=== PATIENT | female | born 1940 | race Caucasian/White ===

== ENCOUNTER → 2020-05-18 15:48 | Outpatient (CLI) | payer MEDICARE, SELFPAY ==
[2020-05-18 16:54] LABS: MANUAL DIFFERENTIAL MANUAL DIFFERENTIAL (MANUAL DIFF)
[2020-05-18 17:46] LABS: Chloride 100 mmol/L (98-107)
[2020-05-18 17:47] LABS: Basophils % 0.4 % (0.1-2.0); Eosinophils # 0.1 K/mm3 (0.0-0.4); Eosinophils % 1.4 % (0.1-12.0); Hematocrit 42.8 % (37.0-47.0); Hemoglobin 14.3 g/dL (12.2-16.2); Lymphocytes # 1.5 K/mm3 (0.7-4.5); Lymphocytes % 20.2 % (10-50); Mean Corpuscular HGB Conc 33.4 g/dL (31.8-35.4); Mean Corpuscular Hemoglobin 30.4 pg (27.0-31.2); Mean Corpuscular Volume 91.1 fl (81-99); Mean Platelet Volume 8.6 fl (7.4-10.4); Monocytes # 0.5 K/mm3 (0.1-1.0); Monocytes % 6.1 % (1.7-9.3); Neutrophils # 5.4 K/mm3 (1.8-7.8); Neutrophils % 71.9 % (37.0-80.0); Platelet Count 331 K/mm3 (142-424); Potassium 4.5 mmoL/L (3.5-5.1); Red Cell Distribution Width 13.4 % (11.5-17.5); Sodium 136 mmol/L (136-145); White Blood Count 7.5 K/mm3 (4.8-10.8)
[2020-05-18 17:49] LABS: Alanine Aminotransferase 15 U/L (12-78); Alkaline Phosphatase 90 U/L (38-126); Anion Gap 12.5 mEq/L (5-15); Aspartate Amino Transferase 23 U/L (14-36); Bilirubin,Total 0.5 mg/dl (0.2-1.3); Blood Urea Nitrogen 17 mg/dl (7-17); Carbon Dioxide 28 mmol/L (22.0-30.0); Estimated Glomerular Filt Rate 48 ml/min (>60); GFR (African American) 58 ML/MIN (>60); Lipase 109 U/L (23-300)
[2020-05-18 17:50] LABS: Albumin Level 4.2 g/dl (3.5-5.0); Albumin/Globulin Ratio 1.5 (1.1-1.8); Calcium 10.3 mg/dl (8.4-10.2); Globulin 2.8 g/dL (1.3-3.2); Glucose 119 mg/dl (74-100)
[2020-05-18 18:57] LABS: Lymphocytes % 9 % (10-50); Neutrophils % 89 % (42-76); Platelet Estimate Normal; RBC Morphology Normal; Total Cells Counted 100
== END ==
PROVIDERS: Visit Provider Family Medicine
DX: D64.9 Anemia, unspecified (principal)
CPT/HCPCS: 80053; 83690; 85007; 85014; 85018; 85048; 85049

== ENCOUNTER → 2021-07-29 09:58 | Outpatient (POV) | payer MEDICARE, SELFPAY ==
[2021-07-29 10:48] VITALS: BP 145/78; PULSE 98; RESP 18; O2SAT 95; BMI 24.7
--- NOTE | 2021-07-29 10:58 | HMH.PMCON ---
Assessment and Plan (1) Chronic low back pain Status: Acute Category: Medical Code(s): M54.50 - Low back pain, unspecified; G89.29 - Other chronic pain (2) Lumbar radiculopathy Status: Acute Category: Medical Code(s): M54.16 - Radiculopathy, lumbar region - Assessment and plan all Dx Assessment and Plan for all problems:: Patient has tried and failed conservative therapy such as oral medication, chiropractic adjustment and at home exercises for greater than 6 weeks. We will schedule the patient for an MRI of her lumbar spine. Patient is currently not in a blood thinners. We will let Dr. Myers continue prescribing her Grass Range. Patient has been instructed to contact the clinic with any concerns before the next appointment. Dr. Phelps has reviewed this note and agrees with this plan of care. This note was dictated using voice recognition software and make contain errors or omissions. HPI - Data of Consult Patient: new to practice Consult date: 07/29/21 Requesting Physician: Abrahan Myers MD - Consult Narrative Reason for consult: Chronic Low Back Pain History of present illness: Ms. Hauser is a 81 year old female who is here today as a new patient. Patient has been referred by Dr. Abrahan Myers for chronic low back pain that is progressively getting worse. Patient states that he has had low back pain for greater than 10 years. Patient denies any trauma. Patient feels like her low back pain is progressively getting worse to bilateral hips, legs, feet. Patient says she has been getting more numbness and paresthesia on bilateral legs. Currently, patient is Grass Range 7.5 mg / 325 mg 3 times a day that is prescribed by Dr. Myers. Patient says that this medication is helping some of her discomfort and denies any side effects from it. Patient says that she has tried and failed conservative therapies such as oral medication, chiropractic adjustments, and at home exercises for greater than 6 weeks in the past. She states that she has not had time to go back to her chiropractor due to covid. Patient has not had any imaging before. She states that she had physical therapy when she had knee surgery in the past. Patient has not tried injective therapy in the past. Patient is currently not on any blood thinners. Patient rates her pain today as 3 out of 10. Her Arsenio number is [id number] with an active morphine equivalent of 23. CC: Azzia Stratton APRN [facility] [place] History I have reviewed the patient's past medical history: Yes Medical History: Reports:: Anxiety, Depression, Hyperlipidemia, Hypertension *Have you ever received a pneumonia vaccine?: Yes *Have you received a flu vaccine this season?: Yes Other Medical History: Reports: Arthritis - *Social History Smoking Status: Never smoker Alcohol Intake: never Substance Use Type: denies use *Occupational Status:: unemployed Housing: house *Travel in the last 8 weeks: None - Psychiatric History Pschychiatric History:: Reports:: Anxiety, Depression Family Hx:: No significant family history Review of Systems - Review of Systems Review of Systems General: No recent weight changes, no fever, no sleep disturbances Respiratory: No cough, no shortness of air, no recurring pulmonary infections Cardiovascular/peripheral vascular: No chest pain, no palpitations, no edema, no shortness of breath Gastrointestinal: No new onset incontinence, normal bowel movements reported Genitourinary: No new onset incontinence Musculoskeletal: Low back pain Psychiatric: [Normal mood/affect] Neurological: [Denies weakness in extremities], [denies balance issues] Meds Home Medications Medication Instructions Recorded Confirmed Type furosemide 20 mg tablet 20 mg PO DAILY 02/23/20 06/13/21 History amlodipine 10 mg tablet 10 mg PO DAILY #90 tab 07/12/20 06/13/21 Rx lisinopril 40 mg tablet 40 mg PO DAILY #90 tab 02/11/21 06/13/21 Rx metoprolol succinate 50 mg 50 mg PO DAILY #90 tab
== END ==
PROVIDERS: Visit Provider Clinical Nurse Specialist Family Health
DX: M54.50 Low back pain, unspecified (principal); M54.16 Radiculopathy, lumbar region
CPT/HCPCS: 99202; G0463

== ENCOUNTER → 2022-11-06 13:49 | Outpatient (CLI) | payer MEDICARE, SELFPAY ==
[2022-11-06 15:09] LABS: Basophils # 0.1 K/mm3 (0-0.2); Basophils % 0.4 % (0.1-2.0); Eosinophils # 0.3 K/mm3 (0.0-0.4); Eosinophils % 2.6 % (0.1-12.0); Lymphocytes # 1.4 K/mm3 (0.7-4.5); Lymphocytes % 12.5 % (10-50); Mean Corpuscular HGB Conc 32.8 g/dL (31.8-35.4); Mean Corpuscular Hemoglobin 20.9 pg (27.0-31.2); Mean Corpuscular Volume 63.8 fl (81-99); Mean Platelet Volume 8.2 fl (7.4-10.4); Monocytes # 0.6 K/mm3 (0.1-1.0); Monocytes % 5.3 % (1.7-9.3); Neutrophils % 79.2 % (37.0-80.0); Platelet Count 641 K/mm3 (142-424); Red Blood Count 2.54 M/mm3 (4.20-5.40); Red Cell Distribution Width 20.7 % (11.5-17.5); White Blood Count 11.4 K/mm3 (4.8-10.8)
[2022-11-06 15:22] LABS: Hematocrit 16.2 % (37.0-47.0); Hemoglobin 5.3 g/dL (12.2-16.2)
== END ==
PROVIDERS: PCP Family Medicine; Visit Provider Family Medicine
DX: M54.40 Lumbago with sciatica, unspecified side (principal)
CPT/HCPCS: 85025

== ENCOUNTER 2022-11-07 08:07 | Outpatient (CLI) | payer MEDICARE, SELFPAY ==
[2022-11-07] VITALS (26 sets, daily range): BP systolic 111–139; BP diastolic 38–85; PULSE 75–94; RESP 16–18; TEMP 35.9–36.3; O2SAT 96–99; BMI 23.9
[2022-11-07 08:44] LABS: Hematocrit 18.5 % (37.0-47.0)
[2022-11-07 09:07] LABS: Hemoglobin 5.1 g/dL (12.2-16.2)
--- NOTE | 2022-11-07 10:07 | PC.NURSE ---
1004-BLOOD TRANSFUSION STARTED AT 100 ML/HR AT THIS TIME.
--- NOTE | 2022-11-07 10:08 | PC.NURSE ---
0945-PREMEDICATED WITH TYLENOL 650MG PO AND BENADRYL 50MG PO AT THIS TIME.
--- NOTE | 2022-11-07 10:43 | PC.NURSE ---
1034-INCREASED RATE TO 150 ML/HR AT THIS TIME.
--- NOTE | 2022-11-07 11:11 | PC.NURSE ---
1104-INCREASED RATE TO 200 ML/HR AT T HIS TIME.
--- NOTE | 2022-11-07 12:07 | PC.NURSE ---
RATE WAS INCREASED TO 250 ML/HR AT 1134.
--- NOTE | 2022-11-07 12:25 | PC.NURSE ---
1215-STARTED BLOOD AT 100 ML/HR AT THIS TIME.
--- NOTE | 2022-11-07 12:33 | PC.NURSE ---
1200-GAVE LASIX 20MG IV AT THIS TIME PRIOR TO STARTING 2ND UNIT BLOOD.
--- NOTE | 2022-11-07 13:01 | PC.NURSE ---
1245-INCREASED RATE TO 150ML/HR AT THIS TIME.
--- NOTE | 2022-11-07 13:03 | PC.NURSE ---
1300-INCREASED RATE TO 200 ML/HR AT THIS TIME.
--- NOTE | 2022-11-07 13:55 | PC.NURSE ---
1315-INCREASED RATE TO 250 ML/HR AT THIS TIME.
--- NOTE | 2022-11-07 14:14 | PC.NURSE ---
1400-GAVE LASIX 20MG IVP AT THIS TIME.
--- NOTE | 2022-11-07 14:27 | PC.NURSE ---
1420-BLOOD TRANSFUSION STARTED AT 100 ML/HR AT THIS TIME.
--- NOTE | 2022-11-07 14:59 | PC.NURSE ---
1450-INCREASED RATE TO 150 ML/HR AT THIS TIME.
--- NOTE | 2022-11-07 15:17 | PC.NURSE ---
1505-INCREASED RATE TO 200 ML/HR AT THIS TIME.
--- NOTE | 2022-11-07 15:22 | PC.NURSE ---
1520-INCREASED RATE TO 250 ML/HR AT THIS TIME.
[2022-11-07 17:11] LABS: Hematocrit 34.5 % (37.0-47.0)
[2022-11-07 17:33] LABS: Hemoglobin 10.9 g/dL (12.2-16.2)
== END 2022-11-07 17:05 | disposition home or self-care (01) ==
LOC: INF 08:08
PROVIDERS: PCP Family Medicine; Visit Provider Family Medicine
DX: D64.9 Anemia, unspecified (principal); R23.1 Pallor
CPT/HCPCS: 36415; 36430; 85014; 85018; 86850; P9016

== ENCOUNTER → 2022-12-25 10:10 | Outpatient (CLI) | payer MEDICARE, SELFPAY ==
[2022-12-25 15:42] LABS: Iron 54 ug/dL (37-170)
[2022-12-25 15:52] LABS: Total Iron Binding Capacity 376 ug/dL (265-497)
[2022-12-25 15:57] LABS: Basophils % 0.5 % (0.1-2.0); Eosinophils # 0.4 K/mm3 (0.0-0.4); Eosinophils % 5.2 % (0.1-12.0); Hematocrit 37.4 % (37.0-47.0); Hemoglobin 11.4 g/dL (12.2-16.2); Lymphocytes # 1.7 K/mm3 (0.7-4.5); Lymphocytes % 21.4 % (10-50); Mean Corpuscular HGB Conc 30.6 g/dL (31.8-35.4); Mean Corpuscular Hemoglobin 25.2 pg (27.0-31.2); Mean Corpuscular Volume 82.4 fl (81-99); Mean Platelet Volume 8.1 fl (7.4-10.4); Monocytes # 0.6 K/mm3 (0.1-1.0); Monocytes % 7.8 % (1.7-9.3); Neutrophils # 5.1 K/mm3 (1.8-7.8); Neutrophils % 65.1 % (37.0-80.0); Platelet Count 387 K/mm3 (142-424); Red Blood Count 4.53 M/mm3 (4.20-5.40); Red Cell Distribution Width 23.2 % (11.5-17.5); White Blood Count 7.8 K/mm3 (4.8-10.8)
== END ==
PROVIDERS: PCP Family Medicine; Visit Provider Family Medicine
DX: G89.29 Other chronic pain (principal); M54.9 Dorsalgia, unspecified; I10 Essential (primary) hypertension; E61.1 Iron deficiency
CPT/HCPCS: 83540; 83550; 85025

== ENCOUNTER → 2023-02-17 14:17 | Outpatient (CLI) | payer MEDICARE, SELFPAY ==
[2023-02-17 14:10] LABS: Basophils % 0.3 % (0.1-2.0); Eosinophils # 0.2 K/mm3 (0.0-0.4); Eosinophils % 1.9 % (0.1-12.0); Hematocrit 40.4 % (37.0-47.0); Hemoglobin 12.5 g/dL (12.2-16.2); Lymphocytes # 1.4 K/mm3 (0.7-4.5); Lymphocytes % 17.3 % (10-50); Mean Corpuscular HGB Conc 30.8 g/dL (31.8-35.4); Mean Corpuscular Hemoglobin 26.2 pg (27.0-31.2); Mean Corpuscular Volume 85.1 fl (81-99); Mean Platelet Volume 8.3 fl (7.4-10.4); Monocytes # 0.5 K/mm3 (0.1-1.0); Monocytes % 5.8 % (1.7-9.3); Neutrophils # 5.9 K/mm3 (1.8-7.8); Neutrophils % 74.7 % (37.0-80.0); Platelet Count 410 K/mm3 (142-424); Red Blood Count 4.75 M/mm3 (4.20-5.40); Red Cell Distribution Width 18.5 % (11.5-17.5); White Blood Count 7.8 K/mm3 (4.8-10.8)
[2023-02-17 15:05] LABS: Iron 42 ug/dL (37-170)
[2023-02-17 15:17] LABS: Total Iron Binding Capacity 425 ug/dL (265-497)
== END ==
PROVIDERS: PCP Family Medicine; Visit Provider Family Medicine
DX: M54.40 Lumbago with sciatica, unspecified side (principal); G89.29 Other chronic pain; D64.9 Anemia, unspecified
CPT/HCPCS: 83540; 83550; 85025

== ENCOUNTER → 2023-07-13 08:31 | Outpatient (CLI) | payer MEDICARE, SELFPAY ==
[2023-07-13 19:41] LABS: Alanine Aminotransferase 18 U/L (12-78); Albumin/Globulin Ratio 1.4 (1.1-1.8); Alkaline Phosphatase 97 U/L (38-126); Anion Gap 12.7 mEq/L (5-15); Aspartate Amino Transferase 25 U/L (14-36); Blood Urea Nitrogen 24 mg/dl (7-17); Calcium 9.1 mg/dl (8.4-10.2); Carbon Dioxide 26 mmol/L (22.0-30.0); Chloride 101 mmol/L (98-107); Estimated Glomerular Filt Rate 53 ml/min (>60); GFR (African American) 64 ML/MIN (>60); Globulin 2.9 g/dL (1.3-3.2); Glucose 93 mg/dl (74-100); Potassium 4.7 mmoL/L (3.5-5.1); Sodium 135 mmol/L (136-145); Total Protein,Serum 6.9 g/dl (6.3-8.2)
[2023-07-13 19:43] LABS: Basophils # 0.1 K/mm3 (0-0.2); Basophils % 0.5 % (0.1-2.0); Eosinophils # 0.3 K/mm3 (0.0-0.4); Eosinophils % 3.7 % (0.1-12.0); Hematocrit 29.6 % (37.0-47.0); Lymphocytes # 1.5 K/mm3 (0.7-4.5); Lymphocytes % 16.4 % (10-50); Mean Corpuscular HGB Conc 30.5 g/dL (31.8-35.4); Mean Corpuscular Hemoglobin 23.1 pg (27.0-31.2); Mean Corpuscular Volume 75.9 fl (81-99); Mean Platelet Volume 9.1 fl (7.4-10.4); Monocytes # 0.7 K/mm3 (0.1-1.0); Monocytes % 8.2 % (1.7-9.3); Neutrophils # 6.4 K/mm3 (1.8-7.8); Neutrophils % 71.2 % (37.0-80.0); Platelet Count 476 K/mm3 (142-424); Red Cell Distribution Width 15.7 % (11.5-17.5)
[2023-07-13 19:46] LABS: Bilirubin,Total < 0.1 mg/dl (0.2-1.3)
== END ==
PROVIDERS: PCP Family Medicine; Visit Provider Family Medicine
DX: M54.40 Lumbago with sciatica, unspecified side (principal); G89.29 Other chronic pain
CPT/HCPCS: 80053; 85025

== ENCOUNTER → 2023-08-06 23:25 | Outpatient (CLI) | payer MEDICARE, SELFPAY ==
[2023-08-06 19:21] LABS: Iron 16 ug/dL (37-170)
[2023-08-06 19:46] LABS: Total Iron Binding Capacity 502 ug/dL (265-497)
== END ==
PROVIDERS: PCP Family Medicine; Visit Provider Family Medicine
DX: R69 Illness, unspecified (principal); Z79.899 Other long term (current) drug therapy; R23.1 Pallor; D50.9 Iron deficiency anemia, unspecified; Z87.19 Personal history of other diseases of the digestive system
CPT/HCPCS: 83540; 83550

== ENCOUNTER 2023-08-10 15:18 | Observation (INO) | payer MEDICARE, SELFPAY ==
[2023-08-10] VITALS (31 sets, daily range): BP systolic 100–159; BP diastolic 56–107; PULSE 69–87; RESP 16–18; TEMP 36.3–37.1; O2SAT 76–100; BMI 24.4; BMI 24.7
[2023-08-10 15:56] LABS: Basophils % 0.2 % (0.1-2.0); Eosinophils # 0.2 K/mm3 (0.0-0.4); Eosinophils % 2.2 % (0.1-12.0); Lymphocytes # 2.4 K/mm3 (0.7-4.5); Lymphocytes % 23.6 % (10-50); Mean Corpuscular HGB Conc 28.6 g/dL (31.8-35.4); Mean Corpuscular Hemoglobin 19.7 pg (27.0-31.2); Mean Corpuscular Volume 69.1 fl (81-99); Mean Platelet Volume 7.6 fl (7.4-10.4); Monocytes # 0.6 K/mm3 (0.1-1.0); Monocytes % 5.7 % (1.7-9.3); Neutrophils # 6.8 K/mm3 (1.8-7.8); Neutrophils % 68.2 % (37.0-80.0); Platelet Count 405 K/mm3 (142-424); Red Blood Count 2.69 M/mm3 (4.20-5.40); Red Cell Distribution Width 16.3 % (11.5-17.5); White Blood Count 9.9 K/mm3 (4.8-10.8)
[2023-08-10 15:58] LABS: Chloride 102 mmol/L (98-107)
[2023-08-10 15:59] LABS: Potassium 3.7 mmoL/L (3.5-5.1); Sodium 136 mmol/L (136-145)
[2023-08-10] MEDS: LACTATED RINGERS 1000ML 1,000 ML 999 ML IV (15:59)
[2023-08-10 16:00] LABS: Hematocrit 18.6 % (37.0-47.0)
[2023-08-10 16:01] LABS: Alanine Aminotransferase 21 U/L (12-78); Aspartate Amino Transferase 22 U/L (14-36); Blood Urea Nitrogen 27 mg/dl (7-17); Creatinine Clearance Estimated 31 mL/min (50-200); Estimated Glomerular Filt Rate 39 ml/min (>60); GFR (African American) 47 ML/MIN (>60); Hemoglobin 5.3 g/dL (12.2-16.2)
--- NOTE | 2023-08-10 16:01 | PC.NURSE ---
critical lab hgb 4.3, hct 18.6, aware
[2023-08-10 16:02] LABS: Albumin Level 4.1 g/dl (3.5-5.0); Albumin/Globulin Ratio 1.5 (1.1-1.8); Alkaline Phosphatase 84 U/L (38-126); Anion Gap 15.7 mEq/L (5-15); Bilirubin,Total 0.3 mg/dl (0.2-1.3); Calcium 8.5 mg/dl (8.4-10.2); Carbon Dioxide 22 mmol/L (22.0-30.0); Globulin 2.8 g/dL (1.3-3.2); Glucose 114 mg/dl (74-100); Total Protein,Serum 6.9 g/dl (6.3-8.2)
--- NOTE | 2023-08-10 16:19 | HMH.EDGENADL ---
Discharge Plan Disposition Patient Disposition: Home, Self-Care Chief Complaint: Recheck/Abnormal Lab/Rx Clinical Impressions Clinical Impression: Signs and symptoms of anemia, Acute GI bleeding Discharge ED Provider: Jose Stewart General Adult HPI General Chief complaint: Recheck/Abnormal Lab/Rx Stated complaint: sent by Dr. Myers, low blood volume Time Seen by Provider: 08/10/23 15:20 Mode of Arrival: Wheelchair Source of Information: Patient and Relative Limitations: No Limitations Description of Symptoms (Recalled from ER Triage Doc. by RN): c/o low hemoglobin per PCP. Pt states she was called and told her blood level was low History of Present Illness HPI narrative: 83-year-old female history of hypertension presenting with low blood levels. Patient states that she has been having dark stools on and off for the past couple of months. Last EGD and colonoscopy were both over 5 years ago. Has been short of breath, denies lightheadedness, nausea or vomiting, fevers or chills, dysuria, hematuria, hemoptysis, or any other concerns. Went to her PCP, was sent to the ER for anemia. Related Data Home Medications Medication Instructions Recorded Confirmed amlodipine 10 mg tablet 10 mg PO DAILY Hypertension 11/07/22 08/06/23 metoprolol succinate 50 mg 50 mg PO DAILY Hypertension 11/07/22 08/06/23 tablet,extended release 24 hr Previous Rx's Medication Instructions Recorded pantoprazole 40 mg tablet,delayed 40 mg PO BID #180 tabs 12/25/22 release (Protonix) promethazine 25 mg tablet See Rx Instructions .Route 07/08/23 .COMPLEX #60 film alprazolam 0.5 mg tablet 0.5 mg PO TID Anxiety #90 tabs 07/09/23 amoxicillin 500 mg-potassium 1 tab PO BID #20 tabs 08/06/23 clavulanate 125 mg tablet (Augmentin) hydrocodone 10 mg-acetaminophen 1 tab PO TID PRN pain #90 tabs 08/06/23 325 mg tablet Allergies Allergy/AdvReac Type Severity Reaction Status Date / Time nitrofurantoin Allergy Severe Rash Verified 08/06/23 10:00 [From Macrobid] [facility] Disclaimer: The information contained in this section may have been updated after the patient was seen, as this information can be updated by other users. Medical History Anxiety Bilateral cataracts GERD (gastroesophageal reflux disease) History of GI bleed Hypertension Osteoarthritis Surgical History History of colonoscopy History of esophagogastroduodenoscopy (EGD) Hx of cataract removal with insertion of prosthetic lens Status post left knee replacement Social History Smoking Status: Never smoker alcohol intake: never substance use type: denies use current occupational status: unemployed Travel in the last 8 weeks: None housing: house ROS Obtained: Yes All systems reviewed & no additional complaints except as documented Physical Exam General General appearance: alert and in no apparent distress Head Head exam: atraumatic and normocephalic Eye Eye exam: Present normal appearance, PERRL and EOMI ENT ENT exam: Present mucous membranes moist Neck Neck exam: Present normal inspection, full ROM and trachea midline Respiratory Respiratory exam: Absent respiratory distress, wheezes, stridor, accessory muscle use or prolonged expiratory phase Cardiovascular Cardiovascular exam: Present normal rhythm Abdominal Exam Abdominal exam: Present soft; Absent distention, tenderness, guarding, rebound, rigidity or normal bowel sounds Extremities Exam Extremities exam: Absent edema Neurological Exam Neurological exam: Present alert, oriented X3, CN II-XII intact and normal gait; Absent motor sensory deficit Skin Skin exam: Present warm and dry; Absent diaphoresis or erythema Medical Decision Making Medical Records Medical records reviewed: Yes I reviewed the patient's medical records. Arsenio Inquiry Pt receiving controlled substance: No Arsenio was queried for this patient: No Vital Signs: 08/10/23 15:20 08/10/23 15:32 08/10/23 17:05 Temperature 98.2 F 98.2 F Temperature Source Oral Oral Pulse Rate 82 80 Pulse Rate [Left Radial] 87 Respiratory Rate 18 16 TAR Vitals Timing Pre-Blood Vitals Blood Pressure 137/62 100/76 L Blood Pressure [Right Arm] 137/62 Blood Pressure Mean 82 84 Blood Pressure Mean [Right Arm] 87 Blood Pressure Source Automatic Cuff Blood Pressure Source [Right Arm] Automatic Cuff Blood Pressure Position Sitting Blood Pressure Position [Right Arm] Sitting 02 Sat by Pulse Oximetry 98 94 L 100 Oxygen Delivery Method Room Air 08/10/23 17:10 08/10/23 17:15 08/10/23 17:20 Temperature 98.2 F 98.1 F 98.2 F Temperature Source Oral Oral Oral Pulse Rate 79 77 76 Pulse Rate [Left Radial] Respiratory Rate 18 18 16 TAR Vitals Timing Start Vitals 5 Minute 10 Minute Blood Pressure 121/89 129/73 140/71 Blood Pressure [Right Arm] Blood Pressure Mean 99 91 94 Blood Pressure Mean [Right Arm] Blood Pressure Source Automatic Cuff Automatic Cuff Automatic Cuff Blood Pressure Source [Right Arm] Blood Pressure Position Sitting Sitting Sitting Blood Pressure Position [Right Arm] 02 Sat by Pulse Oximetry 97 98 100 Oxygen Delivery Method 08/10/23 17:25 08/10/23 16:02 08/10/23 16:31 Temperature 98.0 F Temperature Source Oral Pulse Rate 78 82 82 Pulse Rate [Left Radial] Respiratory Rate 16 TAR Vitals Timing 15 Minute Blood Pressure 148/67 H 118/56 L 115/92 H Blood Pressure [Right Arm] Blood Pressure Mean 94 82 98 Blood Pressure Mean [Right Arm] Blood Pressure Source Automatic Cuff Blood Pressure Source [Right Arm] Blood Pressure Position Sitting Blood Pressure Position [Right Arm] 02 Sat by Pulse Oximetry 100 97 78 L Oxygen Delivery Method 08/10/23 17:01 08/10/23 17:06 08/10/23 17:11 Temperature Temperature Source Pulse Rate 69 76 76 Pulse Rate [Left Radial] Respiratory Rate TAR Vitals Timing Blood Pressure 100/76 L 121/89 139/62 Blood Pressure [Right Arm] Blood Pressure Mean 84 98 87 Blood Pressure Mean [Right Arm] Blood Pressure Source Blood Pressure Source [Right Arm] Blood Pressure Position Blood Pressure Position [Right Arm] 02 Sat by Pulse Oximetry 76 L 97 97 Oxygen Delivery Method 08/10/23 17:15 08/10/23 17:20 08/10/23 17:25 Temperature Temperature Source Pulse Rate 77 78 78 Pulse Rate [Left Radial] Respiratory Rate TAR Vitals Timing Blood Pressure 129/73 140/71 148/67 H Blood Pressure [Right Arm] Blood Pressure Mean 77 89 85 Blood Pressure Mean [Right Arm] Blood Pressure Source Blood Pressure Source [Right Arm] Blood Pressure Position Blood Pressure Position [Right Arm] 02 Sat by Pulse Oximetry 100 98 100 Oxygen Delivery Method Lab Data Lab Results 08/10/23 15:39: WBC 9.9, RBC 2.69 L, Hgb 5.3 L*, Hct 18.6 L*, MCV 69.1 L, MCH 19.7 L, MCHC 28.6 L, RDW 16.3, Plt Count 405, MPV 7.6, Neut % (Auto) 68.2, Lymph % (Auto) 23.6, [place] % (Auto) 5.7, Eos % (Auto) 2.2, Baso % (Auto) 0.2, Neut # (Auto) 6.8, Lymph # (Auto) 2.4, [place] # (Auto) 0.6, Eos # (Auto) 0.2, Baso # (Auto) 0.0, PT 10.4, INR 0.96, Sodium 136, Potassium 3.7, Chloride 102, Carbon Dioxide 22, Anion Gap 15.7 H, BUN 27 H, Creatinine 1.30 H, Estimated Creat Clear 31, Estimated GFR 39 L, Est GFR ( Amer) 47 L, Glucose 114 H, Calcium 8.5, Total Bilirubin 0.3, AST 22, ALT 21, Alkaline Phosphatase 84, Total Protein 6.9, Albumin 4.1, Globulin 2.8, Albumin/Globulin Ratio 1.5, Blood Type O Positive, Antibody Screen Negative, Crossmatch (AHG) See Detail 08/10/23 15:39 08/10/23 15:39 Orders (Tests/Meds): ED MEDICATIONS Generic Name Dose Route Start Last Admin Trade Name Freq PRN Reason Stop Dose Admin Sodium Chloride 250 mls @ 25 mls/hr 08/10/23 16:45 08/10/23 17:10 Sod Chlor 0.9% 250ml Bag IV 08/11/23 16:44 25 mls/hr .Q10H MACI Administration Discontinued Medications Generic Name Dose Route Start Last Admin Trade Name Freq PRN Reason Stop Dose Admin Lactated Ringer's 1,000 mls @ 999 mls/hr 08/10/23 15:38 08/10/23 15:59 Lactated Ringer's 1000 Ml Bag IV 08/10/23 16:38 999 mls/hr .Q1H1M ONE Administration Pantoprazole Sodium 80 mg/ 100 mls @ 100 mls/hr 08/10/23 16:28 08/10/23 16:42 Sodium Chloride IV 08/10/23 17:27 100 mls/hr ONCE ONE Administration ORDERS Category Date Time Status Transfuse RBC's [Red Blood Cells] Stat BBK 08/10/23 15:39 Results Type and Screen Stat BBK 08/10/23 15:39 Results Surgery Consult (on-call) [Consult to On-Call Gen'l Cons 08/10/23 16:28 Ordered Surgeon] [CONS] Routine CBC w/Auto Diff [Complete Blood Count Auto Diff] Stat Lab 08/10/23 15:39 Completed CMP [Comprehensive Metabolic Panel] Stat Lab 08/10/23 15:39 Completed Complete Blood Count Auto Diff AMLAB Lab 08/11/23 06:00 Ordered Comprehensive Metabolic Panel AMLAB Lab 08/11/23 06:00 Ordered Magnesium AMLAB Lab 08/11/23 06:00 Ordered Prothrombin Time INR Routine Lab 08/10/23 15:39 Completed Medical Decision Narrative: 83-year-old female history of hypertension presenting with low blood levels. Patient states that she has been having dark stools on and off for the past couple of months. Last EGD and colonoscopy were both over 5 years ago. Has been short of breath, denies lightheadedness, nausea or vomiting, fevers or chills, dysuria, hematuria, hemoptysis, or any other concerns. Went to her PCP, was sent to the ER for anemia. History was obtained via conversation with patient. On arrival, patient hemodynamically stable, alert, oriented x4, appropriate, GCS 15, moving all extremities spontaneously, pupils equal and reactive to light. Full physical exam performed and significant for well-appearing woman in no acute distress. Nontachycardic, normotensive, well-appearing. Cardiopulmonary exam within normal limits. Differential includes GI bleed, symptomatic anemia, AVM, valvular disease, among others. Patient was given 1 L LR, blood was ordered for symptomatic management and correction of underlying abnormalities. Workup independently interpreted and significant for hemoglobin 5.3, coags normal. Patient has a mild PAULINE and fluids were given. CTA of the abdomen pelvis was considered, but given slow nature of bleed, deemed unnecessary and likely would yield negative results. On reevaluation, patient resting complaint bed General medicine was contacted and case was discussed at length, see note for recommendations and admission. Given patient presentation, workup, history, this most likely represents symptomatic anemia, likely GI bleed. Patient be admitted for upper and lower GI scope. Because patient high risk for clinical decompensation, deemed appropriate for inpatient admission. Results were relayed to patient who voiced understanding and patient was agreeable to inpatient admission and management. Patient was admitted to the hospital for further definitive management, and remained hemodynamically stable during entire stay in the emergency department. Critical Care Critical Care Time Critical Care Time: No
--- NOTE | 2023-08-10 16:32 | P.HP_ITS ---
History of Present Illness *Admission Date: 08/10/23 *Reason for visit:: Weakness *History of present illness: Ms. Washburn is an 83-year-old female with history of arthritis, and, anxiety who presented to the ER at the request of her primary care physician for anemia. States she had labs drawn in [place] earlier today that showed anemia and her PCP contacted her and told her to go to the ER for further management. States she has been having some dark stools off and on for the past few months. Had an EGD and colonoscopy 5 years ago with identification of some gastritis per her report. These images/procedures were performed at [facility] in [place]. Complains of having some shortness of breath, fatigue, weakness but denies lightheadedness, syncope, nausea or vomiting. No hematemesis. No jw bright red blood per rectum. Workup in the ER showed hemoglobin in the mid 5 range. Initiated on pantoprazole and blood transfusion initiated. Medicine consulted for further management and workup. On evaluation, patient is hemodynamically stable. Receiving her first unit of blood. Denies any chest pain or shortness of breath at this time. [facility] Disclaimer: The information contained in this section may have been updated after the patient was seen, as this information can be updated by other users. Medical History (Updated 08/10/23 @ 20:01 by Omega James MD) Anxiety Bilateral cataracts GERD (gastroesophageal reflux disease) History of GI bleed Hypertension Osteoarthritis Surgical History History of colonoscopy History of esophagogastroduodenoscopy (EGD) Hx of cataract removal with insertion of prosthetic lens Status post left knee replacement Family History No significant family history Social History Smoking Status: Never smoker alcohol intake: never substance use type: denies use current occupational status: unemployed Travel in the last 8 weeks: None housing: house Review of Systems Review of Systems Review of systems (narrative): 14 point review of systems performed, pertinent positives and negatives as per HPI Meds Home Medications and Allergies Home Medications Medication Instructions Recorded Confirmed Type amlodipine 10 mg tablet 10 mg PO DAILY Hypertension 11/07/22 08/10/23 History metoprolol succinate 50 mg 50 mg PO DAILY Hypertension 11/07/22 08/10/23 History tablet,extended release 24 hr pantoprazole 40 mg tablet,delayed 40 mg PO BID #180 tabs 12/25/22 08/10/23 Rx release (Protonix) promethazine 25 mg tablet See Rx Instructions .Route 07/08/23 08/10/23 Rx .COMPLEX #60 film alprazolam 0.5 mg tablet 0.5 mg PO TID Anxiety #90 tabs 07/09/23 08/10/23 Rx amoxicillin 500 mg-potassium 1 tab PO BID #20 tabs 08/06/23 08/10/23 Rx clavulanate 125 mg tablet (Augmentin) hydrocodone 10 mg-acetaminophen 1 tab PO TID PRN pain #90 tabs 08/06/23 08/10/23 Rx 325 mg tablet New Prescriptions to Start Prescriptions: Allergies Allergy/AdvReac Type Severity Reaction Status Date / Time nitrofurantoin Allergy Severe Rash Verified 08/10/23 18:48 [From Macrobid] Exam Data for Last 24 hours Vital signs and Labs for Last 24 Hours: Temp Pulse Resp BP Pulse Ox O2 Del Method 98.2 F 82 18 137/62 94 L Room Air 08/10/23 15:20 08/10/23 15:32 08/10/23 15:20 08/10/23 15:32 08/10/23 15:32 08/10/23 15:20 Laboratory Results - last 24 hr 08/10/23 15:39: WBC 9.9, RBC 2.69 L, Hgb 5.3 L*, Hct 18.6 L*, MCV 69.1 L, MCH 19.7 L, MCHC 28.6 L, RDW 16.3, Plt Count 405, MPV 7.6, Neut % (Auto) 68.2, Lymph % (Auto) 23.6, [place] % (Auto) 5.7, Eos % (Auto) 2.2, Baso % (Auto) 0.2, Neut # (Auto) 6.8, Lymph # (Auto) 2.4, [place] # (Auto) 0.6, Eos # (Auto) 0.2, Baso # (Auto) 0.0, Sodium 136, Potassium 3.7, Chloride 102, Carbon Dioxide 22, Anion Gap 15.7 H, BUN 27 H, Creatinine 1.30 H, Estimated Creat Clear 31, Estimated GFR 39 L, Est GFR ( Amer) 47 L, Glucose 114 H, Calcium 8.5, Total Bilirubin 0.3, AST 22, ALT 21, Alkaline Phosphatase 84, Total Protein 6.9, Albumin 4.1, Globulin 2.8, Albumin/Globulin Ratio 1.5, Blood Type O Positive I & O for Last 24 hours: Intake & Output 08/07/23 08/08/23 08/09/23 08/10/23 23:59 23:59 23:59 23:59 Weight 62.596 kg Constitutional Constitutional: no acute distress, average body habitus and chronically ill appearing *Routine HEENT Exam Head: Present normocephalic Eye: Present EOMI and PERRL ENT: Present mucous membranes moist *Routine Neck Exam Neck: Present supple; Absent lymphadenopathy *Routine Respiratory Exam Respiratory: Present CTA bilaterally *Routine Cardiovascular Exam Cardiovascular: Present RRR *Routine Abdominal Exam Abdominal: Present soft and normoactive bowel sounds; Absent tenderness *Routine Rectal Exam Rectal:: deferred *Routine Genitalia Exam Genitalia:: deferred *Routine Extremities Exam Extremities: Absent cyanosis, clubbing or edema *Routine Skin Exam Skin: Present pallor and warm; Absent rash *Routine Neurological Exam Neurological: Present alert, oriented X3 and moving all extremities; Absent altered mental status Assessment and Plan *Assessment and plan (1) Blood loss anemia: Status: Acute Category: Medical Code(s): D50.0 - Iron deficiency anemia secondary to blood loss (chronic) (2) Acute GI bleeding: Status: Acute Category: Medical Code(s): K92.2 - Gastrointestinal hemorrhage, unspecified (3) Essential hypertension: Status: Chronic Category: Medical Code(s): I10 - Essential (primary) hypertension (4) Anxiety: Status: Chronic Category: Medical Code(s): F41.9 - Anxiety disorder, unspecified (5) Osteoarthritis: Status: Chronic Category: Medical Code(s): M19.90 - Unspecified osteoarthritis, unspecified site (6) GERD (gastroesophageal reflux disease): Status: Chronic Category: Medical Code(s): K21.9 - Gastro-esophageal reflux disease without esophagitis Plan 83-year-old female who presented to the ER at the request of her PCP due to anemia. Workup in the ER with hemoglobin of 5.3, MCV 69. Creatinine 1.3 but this appears to be her baseline. Discussed case with the ER physician, request admission for transfusion and further workup by surgery. Medicine agreed to admit. Problems addressed as follows: Blood loss anemia Suspected GI bleed Microcytic anemia, suspected iron deficiency -Having black stools off and on. History of GERD. Previous EGD with gastritis noted per patient report. -Initiated on pantoprazole 80 mg IV x 1 in the ER, continue 40 mg IV twice daily -Typed and crossed, transfused 2 units PRBC, 2-hour post H&H. -Iron studies pending including TIBC, ferritin, iron saturation. Will consider iron transfusion pending levels. -Surgery consulted, appreciate their recommendations. N.p.o. at midnight for possible EGD Hypertension: On amlodipine 10 mg daily, metoprolol 50 mg daily. Anxiety: Continue alprazolam 0.5mg 3 times a day as needed Osteoarthritis: Patient reports taking NSAIDs somewhat regularly. Concerned that this could be a culprit for GI bleed. Monitor for pain control needs. Full code Clear liquids until midnight, n.p.o. thereafter Holding on anticoagulation with suspicion for GI bleed
[2023-08-10 16:41] LABS: INR 0.96 (0.9-1.1); Prothrombin Time 10.4 seconds (10.1-12.5)
[2023-08-10] MEDS: PANTOPRAZOLE SODIUM 80 MG in 0.9 % SODIUM CHLORIDE 100 ML 100 MG IV (16:42)
[2023-08-10] MEDS: 0.9 % SODIUM CHLORIDE 250 ML 25 ML IV (17:10)
--- NOTE | 2023-08-10 17:54 | PC.NURSE ---
Dr. James at [facility] for pt eval
--- NOTE | 2023-08-10 18:09 | PC.NURSE ---
ATTEMPTED TO CALL REPORT TO MIKEL TALAVERA. SHE STATED TO CALL BACK IN 4 MINUTES.
--- NOTE | 2023-08-10 18:24 | PC.NURSE ---
CALLED REPORT TO MIKEL TALAVERA
--- NOTE | 2023-08-10 18:43 | PC.NURSE ---
arrived by w/c from ED
[2023-08-10] MEDS: PANTOPRAZOLE 40MG VIAL 40 MG IV (22:59)
[2023-08-11 00:23] LABS: Hematocrit 24.6 % (37.0-47.0)
[2023-08-11 00:29] LABS: Hemoglobin 7.9 g/dL (12.2-16.2)
[2023-08-11 04:00] VITALS: BP 129/73; PULSE 84; RESP 18; TEMP 36.9; O2SAT 97; BMI 25.1
[2023-08-11 06:39] LABS: Basophils % 0.4 % (0.1-2.0); Eosinophils # 0.4 K/mm3 (0.0-0.4); Eosinophils % 3.8 % (0.1-12.0); Lymphocytes # 1.9 K/mm3 (0.7-4.5); Lymphocytes % 20.4 % (10-50); Mean Corpuscular HGB Conc 31.9 g/dL (31.8-35.4); Mean Corpuscular Hemoglobin 23.7 pg (27.0-31.2); Mean Corpuscular Volume 74.2 fl (81-99); Mean Platelet Volume 7.5 fl (7.4-10.4); Monocytes # 0.5 K/mm3 (0.1-1.0); Monocytes % 5.3 % (1.7-9.3); Neutrophils # 6.6 K/mm3 (1.8-7.8); Neutrophils % 70.1 % (37.0-80.0); Platelet Count 305 K/mm3 (142-424); Red Blood Count 3.36 M/mm3 (4.20-5.40); White Blood Count 9.5 K/mm3 (4.8-10.8)
[2023-08-11 06:40] LABS: Chloride 105 mmol/L (98-107); Potassium 4.1 mmoL/L (3.5-5.1); Sodium 135 mmol/L (136-145)
[2023-08-11 06:42] LABS: Alanine Aminotransferase 17 U/L (12-78); Aspartate Amino Transferase 22 U/L (14-36); Blood Urea Nitrogen 22 mg/dl (7-17); Creatinine Clearance Estimated 42 mL/min (50-200); Estimated Glomerular Filt Rate 53 ml/min (>60); GFR (African American) 64 ML/MIN (>60)
[2023-08-11 06:43] LABS: Albumin Level 3.5 g/dl (3.5-5.0); Albumin/Globulin Ratio 1.3 (1.1-1.8); Alkaline Phosphatase 89 U/L (38-126); Anion Gap 11.1 mEq/L (5-15); Bilirubin,Total 0.4 mg/dl (0.2-1.3); Calcium 8.3 mg/dl (8.4-10.2); Carbon Dioxide 23 mmol/L (22.0-30.0); Globulin 2.6 g/dL (1.3-3.2); Glucose 93 mg/dl (74-100); Magnesium 1.8 mg/dl (1.6-2.3); Total Protein,Serum 6.1 g/dl (6.3-8.2)
[2023-08-11] MEDS: HYDROCODONE 10MG/APAP 325MG TAB 1 TAB PO (06:47)
--- NOTE | 2023-08-11 07:07 | P.CONS_ITS ---
History of Present Illness *Admission Date: 08/10/23 *Reason for visit:: Melena *History of present illness: Forwarded from admission H&P: Ms. Washburn is an 83-year-old female with history of arthritis, and, anxiety who presented to the ER at the request of her primary care physician for anemia. States she had labs drawn in [place] earlier today that showed anemia and her PCP contacted her and told her to go to the ER for further management. States she has been having some dark stools off and on for the past few months. Had an EGD and colonoscopy 5 years ago with identification of some gastritis per her report. These images/procedures were performed at [facility] in [place]. Complains of having some shortness of breath, fatigue, weakness but denies lightheadedness, syncope, nausea or vomiting. No hematemesis. No jw bright red blood per rectum. Workup in the ER showed hemoglobin in the mid 5 range. Initiated on pantoprazole and blood transfusion initiated. Medicine consulted for further management and workup. On evaluation, patient is hemodynamically stable. Receiving her first unit of blood. Denies any chest pain or shortness of breath at this time. [facility] Disclaimer: The information contained in this section may have been updated after the patient was seen, as this information can be updated by other users. Medical History (Updated 08/11/23 @ 07:08 by Mario Alberto Mckenzie MD) Anxiety Bilateral cataracts GERD (gastroesophageal reflux disease) History of GI bleed Hypertension Osteoarthritis Surgical History History of colonoscopy History of esophagogastroduodenoscopy (EGD) Hx of cataract removal with insertion of prosthetic lens Status post left knee replacement Family History No significant family history Social History Smoking Status: Never smoker alcohol intake: never substance use type: denies use current occupational status: unemployed Travel in the last 8 weeks: None housing: house Meds Home Medications and Allergies Home Medications Medication Instructions Recorded Confirmed Type amlodipine 10 mg tablet 10 mg PO DAILY Hypertension 11/07/22 08/10/23 History metoprolol succinate 50 mg 50 mg PO DAILY Hypertension 11/07/22 08/10/23 History tablet,extended release 24 hr pantoprazole 40 mg tablet,delayed 40 mg PO BID #180 tabs 12/25/22 08/10/23 Rx release (Protonix) promethazine 25 mg tablet See Rx Instructions .Route 07/08/23 08/10/23 Rx .COMPLEX #60 film alprazolam 0.5 mg tablet 0.5 mg PO TID Anxiety #90 tabs 07/09/23 08/10/23 Rx amoxicillin 500 mg-potassium 1 tab PO BID #20 tabs 08/06/23 08/10/23 Rx clavulanate 125 mg tablet (Augmentin) hydrocodone 10 mg-acetaminophen 1 tab PO TID PRN pain #90 tabs 08/06/23 08/10/23 Rx 325 mg tablet New Prescriptions to Start Prescriptions: Allergies Allergy/AdvReac Type Severity Reaction Status Date / Time nitrofurantoin Allergy Severe Rash Verified 08/10/23 18:48 [From Macrobid] Exam (Inpt) Vital signs and Labs for Last 24 Hours: Temp Pulse Resp BP Pulse Ox O2 Del Method 98.4 F 84 18 129/73 97 Room Air 08/11/23 04:00 08/11/23 04:00 08/11/23 04:00 08/11/23 04:00 08/11/23 04:00 08/11/23 07:00 Laboratory Results - last 24 hr 08/10/23 15:39: WBC 9.9, RBC 2.69 L, Hgb 5.3 L*, Hct 18.6 L*, MCV 69.1 L, MCH 19.7 L, MCHC 28.6 L, RDW 16.3, Plt Count 405, MPV 7.6, Neut % (Auto) 68.2, Lymph % (Auto) 23.6, [place] % (Auto) 5.7, Eos % (Auto) 2.2, Baso % (Auto) 0.2, Neut # (Auto) 6.8, Lymph # (Auto) 2.4, [place] # (Auto) 0.6, Eos # (Auto) 0.2, Baso # (Aut o) 0.0, PT 10.4, INR 0.96, Sodium 136, Potassium 3.7, Chloride 102, Carbon Dioxide 22, Anion Gap 15.7 H, BUN 27 H, Creatinine 1.30 H, Estimated Creat Clear 31, Estimated GFR 39 L, Est GFR ( Amer) 47 L, Glucose 114 H, Calcium 8.5, Total Bilirubin 0.3, AST 22, ALT 21, Alkaline Phosphatase 84, Total Protein 6.9, Albumin 4.1, Globulin 2.8, Albumin/Globulin Ratio 1.5, Blood Type O Positive, Antibody Screen Negative, Crossmatch ([facility]) See Detail 08/11/23 00:15: Hgb 7.9 L D, Hct 24.6 L 08/11/23 06:05: WBC 9.5, RBC 3.36 L, Hgb 8.0 L, Hct 25.0 L, MCV 74.2 L, MCH 23.7 L, MCHC 31.9, RDW 18.0 H, Plt Count 305, MPV 7.5, Neut % (Auto) 70.1, Lymph % (Auto) 20.4, Ozark % (Auto) 5.3, Eos % (Auto) 3.8, Baso % (Auto) 0.4, Neut # (Auto) 6.6, Lymph # (Auto) 1.9, [place] # (Auto) 0.5, Eos # (Auto) 0.4, Baso # (Auto) 0.0, Sodium 135 L, Potassium 4.1, Chloride 105, Carbon Dioxide 23, Anion Gap 11.1, BUN 22 H, Creatinine 1.00 D, Estimated Creat Clear 42, Estimated GFR 53 L, Est GFR ( Amer) 64 D, Glucose 93, Calcium 8.3 L, Magnesium 1.8, Total Bilirubin 0.4, AST 22, ALT 17, Alkaline Phosphatase 89, Total Protein 6.1 L, Albumin 3.5 D, Globulin 2.6, Albumin/Globulin Ratio 1.3 I & O for Labs for Last 24 Hours: Intake & Output 08/08/23 08/09/23 08/10/23 08/11/23 11:59 11:59 11:59 11:59 Intake Total 552 / 552 Output Total 0 / 0 Balance 552 / 552 Weight 141 lb 12.8 oz Constitutional: no acute distress Respiratory: Absent respiratory distress Cardiac: Absent Tachycardia GI: Present soft Results Labs 08/11/23 06:05 08/11/23 06:05 Labs: Laboratory Results - last 24 hr 08/10/23 15:39: WBC 9.9, RBC 2.69 L, Hgb 5.3 L*, Hct 18.6 L*, MCV 69.1 L, MCH 19.7 L, MCHC 28.6 L, RDW 16.3, Plt Count 405, MPV 7.6, Neut % (Auto) 68.2, Lymph % (Auto) 23.6, [place] % (Auto) 5.7, Eos % (Auto) 2.2, Baso % (Auto) 0.2, Neut # (Auto) 6.8, Lymph # (Auto) 2.4, [place] # (Auto) 0.6, Eos # (Auto) 0.2, Baso # (Auto) 0.0, PT 10.4, INR 0.96, Sodium 136, Potassium 3.7, Chloride 102, Carbon Dioxide 22, Anion Gap 15.7 H, BUN 27 H, Creatinine 1.30 H, Estimated Creat Clear 31, Estimated GFR 39 L, Est GFR ( Amer) 47 L, Glucose 114 H, Calcium 8.5, Total Bilirubin 0.3, AST 22, ALT 21, Alkaline Phosphatase 84, Total Protein 6.9, Albumin 4.1, Globulin 2.8, Albumin/Globulin Ratio 1.5, Blood Type O Positive, Antibody Screen Negative, Crossmatch ([facility]) See Detail 08/11/23 00:15: Hgb 7.9 L D, Hct 24.6 L 08/11/23 06:05: WBC 9.5, RBC 3.36 L, Hgb 8.0 L, Hct 25.0 L, MCV 74.2 L, MCH 23.7 L, MCHC 31.9, RDW 18.0 H, Plt Count 305, MPV 7.5, Neut % (Auto) 70.1, Lymph % (Auto) 20.4, [place] % (Auto) 5.3, Eos % (Auto) 3.8, Baso % (Auto) 0.4, Neut # (Auto) 6.6, Lymph # (Auto) 1.9, [place] # (Auto) 0.5, Eos # (Auto) 0.4, Baso # (Auto) 0.0, Sodium 135 L, Potassium 4.1, Chloride 105, Carbon Dioxide 23, Anion Gap 11.1, BUN 22 H, Creatinine 1.00 D, Estimated Creat Clear 42, Estimated GFR 53 L, Est GFR ( Amer) 64 D, Glucose 93, Calcium 8.3 L, Magnesium 1.8, Total Bilirubin 0.4, AST 22, ALT 17, Alkaline Phosphatase 89, Total Protein 6.1 L, Albumin 3.5 D, Globulin 2.6, Albumin/Globulin Ratio 1.3 Assessment and Plan *Assessment and plan (1) Melena: Status: Acute Category: Medical Code(s): K92.1 - Melena Plan: Proton pump inhibition Serial hemoglobin/hematocrit Esophagogastroduodenoscopy planned for later today. I have discussed the risks and benefits including, but not limited to: Bleeding Infection Damage to surrounding tissue Inherent risks of sedation The patient agrees to proceed.
--- NOTE | 2023-08-11 07:33 | HMH.PHAINT1 ---
Pharmacy Intervention Comments: home medication list verified using list from outpatient pharmacy and pt interview
[2023-08-11 07:40] LABS: Iron 21 ug/dL (37-170)
[2023-08-11 07:49] LABS: Total Iron Binding Capacity 451 ug/dL (265-497)
[2023-08-11 08:00] VITALS: BP 167/101; PULSE 97; RESP 22; TEMP 36.9; O2SAT 98
[2023-08-11 08:18] LABS: Ferritin 3.96 ng/ml (11.1-264)
[2023-08-11] MEDS: PANTOPRAZOLE 40MG VIAL 40 MG IV (08:31)
[2023-08-11] MEDS: METOPROLOL SUCCINATE XL 50MG TABLET 50 MG PO (08:32)
[2023-08-11] MEDS: AMLODIPINE 10MG TABLET 10 MG PO (08:32)
--- NOTE | 2023-08-11 08:35 | PC.NURSE ---
SRNA NOTE: Mary Anne TALAVERA notified of elevated BP @0800 vitals. Sloane SRNA
--- NOTE | 2023-08-27 18:55 | P.DS_ITS ---
General Admission date:: 08/10/23 Discharge date: 08/12/23 HPI HPI HPI: Forwarded from admission H&P: Ms. Washburn is an 83-year-old female with history of arthritis, and, anxiety who presented to the ER at the request of her primary care physician for anemia. States she had labs drawn in [place] earlier today that showed anemia and her PCP contacted her and told her to go to the ER for further management. States she has been having some dark stools off and on for the past few months. Had an EGD and colonoscopy 5 years ago with identification of some gastritis per her report. These images/procedures were performed at [facility] in [place]. Complains of having some shortness of breath, fatigue, weakness but denies lightheadedness, syncope, nausea or vomiting. No hematemesis. No jw bright red blood per rectum. Workup in the ER showed hemoglobin in the mid 5 range. Initiated on pantoprazole and blood transfusion initiated. Medicine consulted for further management and workup. On evaluation, patient is hemodynamically stable. Receiving her first unit of blood. Denies any chest pain or shortness of breath at this time. Hospital Course Hospital Course Hospital Course: 83-year-old female who presented to the ER at the request of her PCP due to anemia. Workup in the ER with hemoglobin of 5.3, MCV 69. Creatinine 1.3 but this appears to be her baseline. Discussed case with the ER physician, request admission for transfusion and further workup by surgery. Medicine agreed to ad gillian. Problems addressed as follows: Blood loss anemia - stable Suspected GI bleed - stopped Microcytic anemia, suspected iron deficiency Patient left against AMA Exam Data for Last 24 hours Vital signs and Labs for Last 24 Hours: Temp Pulse Resp BP Pulse Ox O2 Del Method 98.4 F 97 H 22 167/101 H 98 Room Air 08/11/23 08:00 08/11/23 08:00 08/11/23 08:00 08/11/23 08:00 08/11/23 08:00 08/11/23 08:31 Constitutional Constitutional: no acute distress *Routine HEENT Exam Head: Present normocephalic Eye: Present EOMI and PERRL ENT: Present mucous membranes moist *Routine Neck Exam Neck: Present supple; Absent lymphadenopathy *Routine Respiratory Exam Respiratory: Present CTA bilaterally *Routine Cardiovascular Exam Cardiovascular: Present RRR *Routine Abdominal Exam Abdominal: Present soft and normoactive bowel sounds; Absent tenderness *Routine Extremities Exam Extremities: Absent cyanosis, clubbing or edema *Routine Skin Exam Skin: Present warm; Absent rash *Routine Neurological Exam Neurological: Present alert and oriented X3 DS: Diagnosis Discharge Diagnosis (1) Melena: Status: Acute Code(s): K92.1 - Melena Meds Home Medications and Allergies Home Medications Medication Instructions Recorded Confirmed Type amlodipine 10 mg tablet 10 mg PO DAILY Hypertension 11/07/22 08/10/23 History metoprolol succinate 50 mg 50 mg PO DAILY Hypertension 11/07/22 08/10/23 History tablet,extended release 24 hr pantoprazole 40 mg tablet,delayed 40 mg PO BID #180 tabs 12/25/22 08/10/23 Rx release (Protonix) alprazolam 0.5 mg tablet 0.5 mg PO TID Anxiety #90 tabs 07/09/23 08/11/23 Rx amoxicillin 500 mg-potassium 1 tab PO BID #20 tabs 08/06/23 08/10/23 Rx clavulanate 125 mg tablet (Augmentin) hydrocodone 10 mg-acetaminophen 1 tab PO TID PRN pain #90 tabs 08/06/23 08/10/23 Rx 325 mg tablet latanoprost 0.005 % eye drops 1 drp Eye-Both HS 08/11/23 08/11/23 History promethazine 25 mg tablet 25 mg PO TIDP PRN Nausea 08/11/23 08/11/23 History New Prescriptions to Start Prescriptions: Allergies Allergy/AdvReac Type Severity Reaction Status Date / Time nitrofurantoin Allergy Severe Rash Verified 08/10/23 18:48 [From Macrobid] Discharge Plan Disposition Patient Disposition: Left Against Medical Advice Condition: Fair Providers Admit Provider: Omega James Attending Provider: Omega James
== END 2023-08-11 10:50 | disposition left against medical advice (07) ==
LOC: ER 15:58 → 2ND 18:07
PROVIDERS: Admitting Provider Internal Medicine Adolescent Medicine; Emergency Provider Emergency Medicine; PCP Family Medicine; Visit Provider Internal Medicine Adolescent Medicine
DX: D50.0 Iron deficiency anemia secondary to blood loss (chronic) (principal); K92.2 Gastrointestinal hemorrhage, unspecified; I10 Essential (primary) hypertension; F41.9 Anxiety disorder, unspecified; M19.90 Unspecified osteoarthritis, unspecified site; K21.9 Gastro-esophageal reflux disease without esophagitis; K92.1 Melena; D53.9 Nutritional anemia, unspecified; Z79.899 Other long term (current) drug therapy
CPT/HCPCS: 36415; 80053; 82728; 83540; 83550; 83735; 85014; 85018; 85025; 85610; 86850; 99285; G0378; P9016

== ENCOUNTER 2023-09-21 20:42 | Outpatient (CLI) | payer MEDICARE, SELFPAY ==
[2023-09-21 20:43] LABS: Basophils # 0.1 K/mm3 (0-0.2); Basophils % 0.5 % (0.1-2.0); Eosinophils # 0.3 K/mm3 (0.0-0.4); Hematocrit 25.3 % (37.0-47.0); Hemoglobin 7.5 g/dL (12.2-16.2); Lymphocytes # 1.9 K/mm3 (0.7-4.5); Lymphocytes % 20.1 % (10-50); Mean Corpuscular HGB Conc 29.4 g/dL (31.8-35.4); Mean Corpuscular Hemoglobin 20.9 pg (27.0-31.2); Mean Corpuscular Volume 71.1 fl (81-99); Mean Platelet Volume 8.4 fl (7.4-10.4); Monocytes # 0.6 K/mm3 (0.1-1.0); Neutrophils # 6.4 K/mm3 (1.8-7.8); Neutrophils % 69.4 % (37.0-80.0); Platelet Count 644 K/mm3 (142-424); Red Blood Count 3.57 M/mm3 (4.20-5.40); Red Cell Distribution Width 19.3 % (11.5-17.5); White Blood Count 9.2 K/mm3 (4.8-10.8)
[2023-09-21 20:56] LABS: Iron 17 ug/dL (37-170)
[2023-09-21 21:06] LABS: Total Iron Binding Capacity 475 ug/dL (265-497)
== END 2023-09-21 23:59 ==
LOC: LAB.DROPOF 20:42
PROVIDERS: PCP Family Medicine; Visit Provider Family Medicine
DX: M54.16 Radiculopathy, lumbar region (principal); D50.0 Iron deficiency anemia secondary to blood loss (chronic)
CPT/HCPCS: 83540; 83550; 85025

== ENCOUNTER 2023-10-22 22:09 | Outpatient (CLI) | payer MEDICARE, SELFPAY ==
[2023-10-22 18:29] LABS: Basophils % 0.5 % (0.1-2.0); Eosinophils # 0.3 K/mm3 (0.0-0.4); Eosinophils % 3.3 % (0.1-12.0); Hematocrit 43.1 % (37.0-47.0); Hemoglobin 12.6 g/dL (12.2-16.2); Lymphocytes # 1.4 K/mm3 (0.7-4.5); Lymphocytes % 17.3 % (10-50); Mean Corpuscular HGB Conc 29.2 g/dL (31.8-35.4); Mean Corpuscular Hemoglobin 25.4 pg (27.0-31.2); Mean Corpuscular Volume 87.2 fl (81-99); Mean Platelet Volume 9.1 fl (7.4-10.4); Monocytes # 0.4 K/mm3 (0.1-1.0); Monocytes % 5.5 % (1.7-9.3); Neutrophils # 5.8 K/mm3 (1.8-7.8); Neutrophils % 73.3 % (37.0-80.0); Platelet Count 483 K/mm3 (142-424); Red Blood Count 4.94 M/mm3 (4.20-5.40); Red Cell Distribution Width 24.2 % (11.5-17.5); White Blood Count 7.9 K/mm3 (4.8-10.8)
[2023-10-22 18:39] LABS: Iron 50 ug/dL (37-170)
[2023-10-22 18:54] LABS: Total Iron Binding Capacity 323 ug/dL (265-497)
== END 2023-10-22 23:59 | disposition home or self-care (01) ==
LOC: LAB.DROPOF 22:10
PROVIDERS: PCP Family Medicine; Visit Provider Family Medicine
DX: M15.4 Erosive (osteo)arthritis (principal); G89.29 Other chronic pain; M54.50 Low back pain, unspecified; Z79.899 Other long term (current) drug therapy; R79.9 Abnormal finding of blood chemistry, unspecified
CPT/HCPCS: 83540; 83550; 85025

== ENCOUNTER 2023-12-17 09:07 | Outpatient (CLI) | payer MEDICARE, SELFPAY ==
[2023-12-17 18:41] LABS: Basophils # 0.1 K/mm3 (0-0.2); Basophils % 0.4 % (0.1-2.0); Eosinophils # 0.1 K/mm3 (0.0-0.4); Eosinophils % 0.5 % (0.1-12.0); Hematocrit 42.9 % (37.0-47.0); Hemoglobin 13.4 g/dL (12.2-16.2); Lymphocytes # 1.4 K/mm3 (0.7-4.5); Lymphocytes % 10.3 % (10-50); Mean Corpuscular HGB Conc 31.2 g/dL (31.8-35.4); Mean Corpuscular Volume 89.6 fl (81-99); Mean Platelet Volume 8.8 fl (7.4-10.4); Monocytes # 0.5 K/mm3 (0.1-1.0); Monocytes % 3.3 % (1.7-9.3); Neutrophils # 11.6 K/mm3 (1.8-7.8); Neutrophils % 85.5 % (37.0-80.0); Platelet Count 481 K/mm3 (142-424); Red Blood Count 4.79 M/mm3 (4.20-5.40); Red Cell Distribution Width 20.7 % (11.5-17.5); White Blood Count 13.6 K/mm3 (4.8-10.8)
[2023-12-17 18:45] LABS: MANUAL DIFFERENTIAL MANUAL DIFFERENTIAL (MANUAL DIFF)
[2023-12-17 18:56] LABS: Iron 42 ug/dL (37-170)
[2023-12-17 19:06] LABS: Total Iron Binding Capacity 318 ug/dL (265-497)
[2023-12-17 19:15] LABS: Lymphocytes % 14 % (10-50); Monocytes % 1 % (2-9); Neutrophils % 85 % (42-76); Platelet Estimate Slight Increase; RBC Morphology Normal; Total Cells Counted 100
== END 2023-12-17 23:59 | disposition home or self-care (01) ==
LOC: LAB.DROPOF 12-21 09:08
PROVIDERS: PCP Family Medicine; Visit Provider Family Medicine
DX: I10 Essential (primary) hypertension (principal); K92.1 Melena; Z79.899 Other long term (current) drug therapy
CPT/HCPCS: 83540; 83550; 85007; 85025

== ENCOUNTER 2024-03-17 10:16 | Outpatient (CLI) | payer MEDICARE, SELFPAY ==
[2024-03-17 18:22] LABS: Basophils # 0.1 K/mm3 (0-0.2); Basophils % 1.1 % (0.1-2.0); Eosinophils # 0.3 K/mm3 (0.0-0.4); Eosinophils % 3.8 % (0.1-12.0); Hematocrit 42.7 % (37.0-47.0); Hemoglobin 13.2 g/dL (12.2-16.2); Lymphocytes # 1.6 K/mm3 (0.7-4.5); Lymphocytes % 21.7 % (10-50); Mean Corpuscular HGB Conc 30.8 g/dL (31.8-35.4); Mean Corpuscular Hemoglobin 28.4 pg (27.0-31.2); Mean Platelet Volume 9.2 fl (7.4-10.4); Monocytes # 0.5 K/mm3 (0.1-1.0); Monocytes % 6.4 % (1.7-9.3); Neutrophils # 4.9 K/mm3 (1.8-7.8); Platelet Count 429 K/mm3 (142-424); Red Blood Count 4.64 M/mm3 (4.20-5.40); Red Cell Distribution Width 14.3 % (11.5-17.5); White Blood Count 7.4 K/mm3 (4.8-10.8)
[2024-03-17 20:03] LABS: Iron 48 ug/dL (37-170)
[2024-03-17 20:13] LABS: Total Iron Binding Capacity 320 ug/dL (265-497)
== END 2024-03-17 23:59 | disposition home or self-care (01) ==
LOC: LAB.DROPOF 03-18 10:06
PROVIDERS: PCP Family Medicine; Visit Provider Family Medicine
DX: D50.0 Iron deficiency anemia secondary to blood loss (chronic) (principal); G89.29 Other chronic pain
CPT/HCPCS: 83540; 83550; 85025

== ENCOUNTER 2024-10-07 11:25 | Outpatient (CLI) | payer MEDICARE, SELFPAY ==
[2024-10-07 17:51] LABS: Basophils # 0.1 K/mm3 (0-0.2); Basophils % 0.7 % (0.1-2.0); Eosinophils # 0.5 K/mm3 (0.0-0.4); Eosinophils % 5.3 % (0.1-12.0); Hematocrit 36.7 % (37.0-47.0); Hemoglobin 10.6 g/dL (12.2-16.2); Lymphocytes # 1.4 K/mm3 (0.7-4.5); Lymphocytes % 16.1 % (10-50); Mean Corpuscular HGB Conc 28.9 g/dL (31.8-35.4); Mean Corpuscular Hemoglobin 25.3 pg (27.0-31.2); Mean Corpuscular Volume 87.6 fl (81-99); Mean Platelet Volume 10.3 fl (7.4-10.4); Monocytes # 0.6 K/mm3 (0.1-1.0); Monocytes % 7.4 % (1.7-9.3); Platelet Count 365 K/mm3 (142-424); Red Blood Count 4.19 M/mm3 (4.20-5.40); Red Cell Distribution Width 20.6 % (11.5-17.5); White Blood Count 8.6 K/mm3 (4.8-10.8)
[2024-10-07 18:25] LABS: Iron 56 ug/dL (37-170)
[2024-10-07 18:40] LABS: Total Iron Binding Capacity 437 ug/dL (265-497)
[2024-10-07 19:08] LABS: Ferritin 27.9 ng/ml (11.1-264)
== END 2024-10-07 23:59 | disposition home or self-care (01) ==
LOC: LAB.DROPOF 10-09 03:52
PROVIDERS: PCP Family Medicine; Visit Provider Family Medicine
DX: D50.0 Iron deficiency anemia secondary to blood loss (chronic) (principal)
CPT/HCPCS: 82728; 83540; 83550; 85025

== ENCOUNTER 2025-01-27 08:42 | Outpatient (CLI) | payer MEDICARE, SELFPAY ==
[2025-01-27 17:53] LABS: Basophils # 0.1 K/mm3 (0-0.2); Basophils % 0.6 % (0.1-2.0); Eosinophils # 0.4 Kmm3 (0.0-0.4); Eosinophils % 4.7 % (0.1-12.0); Hematocrit 28.6 % (37.0-47.0); Hemoglobin 7.9 g/dL (12.2-16.2); Immature Granulocytes # 0.04 10^3uL; Immature Granulocytes % 0.5 %; Lymphocytes # 1.3 K/mm3 (0.7-4.5); Lymphocytes % 15.7 % (10-50); Mean Corpuscular HGB Conc 27.6 g/dL (31.8-35.4); Mean Corpuscular Hemoglobin 22.1 pg (27.0-31.2); Mean Corpuscular Volume 79.9 fl (81-99); Monocytes # 0.7 K/mm3 (0.1-1.0); Neutrophils # 5.7 K/mm3 (1.8-7.8); Neutrophils % 69.5 % (37.0-80.0); Nucleated Red Blood Cells # 0 10^3/uL; Nucleated Red Blood Cells % 0 %; Platelet Count 468 K/mm3 (142-424); Red Blood Count 3.58 M/mm3 (4.20-5.40); Red Cell Distribution Width 16.6 % (11.5-17.5); White Blood Count 8.1 K/mm3 (4.8-10.8)
[2025-01-27 18:13] LABS: D-Dimer 1.06 ug/mL (0.0-0.5)
[2025-01-27 18:25] LABS: Alanine Aminotransferase 10 U/L (12-78); Albumin Level 3.6 g/dl (3.5-5.0); Albumin/Globulin Ratio 1.4 (1.1-1.8); Alkaline Phosphatase 97 U/L (38-126); Anion Gap 7.5 mEq/L (5-15); Aspartate Amino Transferase 18 U/L (14-36); Bilirubin,Total 0.3 mg/dl (0.2-1.3); Blood Urea Nitrogen 18 mg/dl (7-17); Calcium 9.2 mg/dl (8.4-10.2); Carbon Dioxide 27 mmol/L (22.0-30.0); Chloride 104 mmol/L (98-107); Estimated Glomerular Filt Rate 53 ml/min (>60); GFR (African American) 64 ML/MIN (>60); Globulin 2.5 g/dL (1.3-3.2); Glucose 103 mg/dl (74-100); Potassium 4.5 mmoL/L (3.5-5.1); Sodium 134 mmol/L (136-145); Total Protein,Serum 6.1 g/dl (6.3-8.2)
[2025-01-27 19:36] LABS: Iron 18 ug/dL (37-170)
[2025-01-27 19:45] LABS: Total Iron Binding Capacity 379 ug/dL (265-497)
--- OUTSIDE RECORDS SUMMARY | 2025-01-30 08:47 | XMS_ITS | Data Portability ---
Author Organization [place] - [facility] Address [address] [place] [id number] Assessment No assessment recorded. Plan of Treatment Reminders Order Date Submit Date Provider Last Modified By Organization Details Last Modified Time Details Appointments None recorded. Lab None recorded. Referral None recorded. Procedures None recorded. Surgeries None recorded. Imaging None recorded. Medication Orders Kenalog 10 mg/mL suspension for injection [address], [address], 3 16:20:13 bupivacaine HCl 0.5 % (5 mg/mL) injection solution [address], [address], 3 16:20:13 Kenalog 10 mg/mL suspension for injection [address], [address], 3 11:17:34 bupivacaine (PF) 0.25 % (2.5 mg/mL) injection solution [address], [address], 3 11:17:34 Patient TargetsNo targets recorded. Patient InstructionsNo instructions recorded. Reason for Referral None Reported. Results Created Date Observation Date Name Description Value Unit Range Abnormal Flag Note LastModifiedBy Organization Detail LastModifiedTime 09/27/1909/27/2024 XR, chest , 2 view [facility] [address] [place] [address] Phone: Fax: Name: CONNIE SOTO Exam Date: 09/27/19 : 938 Age 84 years Gender : F Access ion: [id number] Physic rios: Reji Zhou Facili ty: [facility] HSV: Outpat ient Exam: CHEST PA AND LAT Histor y:i??i ??SOA x 1 weeki? ?i??H/ O HTN, non-sm oker Techni que: Chest one view Compar art:i ??i??N one Interp retati on:i?? i?? Large hiatal hernia with fluid level. i??i?? Low lung volume s withou t conflu ent airspa ce consol idatio n.i??i ??Mild blunti ng of the costop hrenic angles may be due to trace effusi ons or atelec tasis. i??i?? Mild cardio megaly . Impres cullen: Large hiatal hernia . Electr onical ly Signed by: Lulu James MD Dictat ed By: Lulu James Transc ribed By: Transc ribed On: 09/27/19 3:44 PM Electr onical ly signed by: Lulu James 09/27/19 Thank you for referr ing CONNIE SOTO to [facility]. Legall y authen ticate d by ANABEL VELAZQUEZ D 09-27 15:44: 03 CC'ed Logic: Orderi ng Provid er: DAPHNIE AWAN Attend ing Provid er: DAPHNIE AWAN Referr ing Provid er: DAPHNIE AWAN Admitt ing Provid er: DAPHNIE AWAN INTERFACE [facility] (Imaging) [address] [place], [address], 09/27/2024 15:49:43 Result Notes None recorded. Medical Equipment None Reported. Allergies No known drug allergies Medications Name Sig Start Date Stop Date Status Note LastModified by Organization Details LastModified Time latanoprost 0.005 % eye drops LOCATION: BOTH EYES. INSTILL ONE DROP TO EACH EYE AT BEDTIME. active Not Available Not Available No t Available metoprolol succinate ER 50 mg tablet,exten ded release 24 hr TAKE ONE (1) TABLET BY MOUTH EVERY DAY active Not Available Not Available No t Available bupivacaine HCl 0.5 % (5 mg/mL) injection solution Take 2 mL by injection route. 2022 active Not Available Not Available Not Avai lable hydrocodone 10 mg-acetamino phen 325 mg tablet ONE (1) TAB ORALLY THREE TIMES A DAY NEEDED FOR PAIN active Not Available Not Available No t Available alprazolam 0.5 mg tablet TAKE ONE (1) TABLET BY MOUTH THREE (3) TIMES DAILY FOR ANXIETY active Not Available Not Available Not Available Kenalog 10 mg/mL suspension for injection Take 2 mL by injection route. 2022 active Not Available Not Available Not Avai lable amlodipine 10 mg tablet TAKE ONE (1) TABLET BY MOUTH EVERY DAY active Not Available Not Available No t Available hydrocodone 7.5 mg-acetamino phen 325 mg tablet TAKE 1 TABLET BY MOUTH THREE TIMES A DAY NEEDED FOR PAIN active Not Available Not Available No t Available pantoprazole 40 mg tablet,delay ed release TAKE 1 TABLET BY MOUTH TWICE DAILY active Not Available Not Available No t Available promethazine 25 mg tablet TAKE 1 TABLET BY MOUTH THREE (3) TIMES DAILY NEEDED FOR NAUSEA OR VOMITING active Not Available Not Available No t Available methylpredni solone 4 mg tablets in a dose pack TAKE DIRECTED PER PACKAGE INSTRUCTION S active Not Available Not Available No t Available amoxicillin 875 mg-potassium clavulanate 125 mg tablet TAKE 1 TABLET BY MOUTH TWICE DAILY FOR 10 DAYS active Not Available Not Available No t Available azithromycin 500 mg tablet TAKE 1 TABLET BY MOUTH EVERY DAY FOR THREE (3) DAYS active Not Available Not Available No t Available bupivacaine (PF) 0.25 % (2.5 mg/mL) injection solution Take 2 mg by injection route. 2022 active Not Available Not Available Not Avai lable Vitals Date Recorded Body temperature Heart rate Respiratory rate Systolic blood pressure Diastolic blood pressure Provider Name and Address Organization Details Last Updated DateTime 3 98 [degF] 70 /min 18 /min 130 mm[Hg] 67 mm[Hg] Payton Valentine [place] - [facility] - [place] & [place] 3 10:12:17 Social History None recorded. Functional Status None recorded. Mental Status None recorded. Family History Relationship Description Onset Age of this Age Resolved Age Notes LastModified by Organization Details LastModified Time Father No current problems or disability [email or web address] Not available 02/27 10:12:34 Mother No current problems or disability [email or web address] Not available 02/27 10:12:34 Medical History No medical history recorded. Gynecological HistoryNo gynecological history recorded. Obstetrics History GPAL:G 0 P 0 0 0 0 Past Encounters Encounter ID Performer Location Encounter Start Date Encounter Closed Date Diagnosis/Indication Diagnosis SNOMED-CT Code Diagnosis ICD10 Code Diagnosis Note [id number] FRANCIE FERREIRA [address] [address] 02/27/2023 09:55:12 02/27/2023 11:00:15 Osteoarthritis of right knee joint [id number] 22884 M17.11 [id number] FRANCIE FERREIRA [address] [address] 07/08/2023 14:44:34 07/08/2023 15:16:06 Osteoarthritis of right knee joint [id number] 59156 M17.11 Health Concerns Section Related Observation LastModified by Organization Detai ls LastModified Time None Recorded Concern Status LastModified by Organization Details LastModified Time None Recorded Advance Directives Directive None Recorded Payers Insurance Date Sequence Insurance Name Policy Number Policy Marti Covered Member ID Marti Member ID Guarantor Name 12/17/2020 1 MEDICAID-[facility] - FFS/LIZETA Harvey Soto [id number] Connie Soto 12/17/2020 1 [place] Connie Soto [id number] Connie Soto 09/30/2023 1 [place] CLEMENTE OSEGUERA OF [place] - MEDIB[place] ACCESS (MEDICARE REPLACEMENT REGIONAL PPO) [id number] Connie Soto [id number] Connie Wei Soto Notes Date Note Type Note Provider Name and Address Organization Details Recorded Time 02/27/2023 text/html Patient is here today for right knee injection. Last injection was E3 JS MARGARITA BILLINGS, FRANCIE [address] [facility],[address], [place], [address], [facility] 02/27/2023 11:02:13 07/08/2023 text/html 83 y.o male here for right knee injections. last injection 02.27.23. E1AR MARGARITA BILLINGS, FRANCIE [address] [facility],[address], [place], [address], [facility] & [place] 07/08/2023 16:23:21 OBGyn Episode No OBEpisode recorded.
== END 2025-01-27 23:59 | disposition home or self-care (01) ==
LOC: LAB.DROPOF 01-30 08:43
PROVIDERS: PCP Family Medicine; Visit Provider Family Medicine
DX: D64.9 Anemia, unspecified (principal); R07.9 Chest pain, unspecified; R60.9 Edema, unspecified
CPT/HCPCS: 80053; 83540; 83550; 85025; 85378

== ENCOUNTER 2025-01-30 18:42 | Emergency (ER) | payer MEDICARE, SELFPAY ==
[2025-01-30 19:12] VITALS: BP 151/66; PULSE 86; RESP 16; TEMP 36.9; O2SAT 99; BMI 23.9
--- NOTE | 2025-01-30 19:43 | XR_ITS ---
PROCEDURE INFORMATION: Exam: XR Chest Exam date and time: 01/30/2025 8:06 PM Age: 84 years old Clinical indication: Shortness of breath; Additional info: Short of breath TECHNIQUE: Imaging protocol: Radiologic exam of the chest. Views: 1 view. COMPARISON: No relevant prior studies available. FINDINGS: Lungs: Chronic appearing interstitial opacities. No focal consolidation. Pleural spaces: Unremarkable. No pleural effusion. No pneumothorax. Heart/Mediastinum: Retrocardiac lucency. Bones/joints: Unremarkable. IMPRESSION: No acute cardiopulmonary disease. Retrocardiac lucency. Suspicious for hiatal hernia.
--- NOTE | 2025-01-30 19:47 | HMH.EDGENADL ---
Discharge Plan Disposition Patient Disposition: Home, Self-Care Prescriptions Prescriptions: No Action metoprolol succinate 50 mg tablet extended release 24 hr See Rx Instructions .ROUTE .COMPLEX Qty: 90 3RF Dose Instruction: TAKE ONE (1) TABLET BY MOUTH EVERY DAY Rx Instructions: TAKE ONE (1) TABLET BY MOUTH EVERY DAY promethazine 25 mg tablet 25 mg PO TIDP PRN (Reason: Nausea) Qty: 30 3RF amlodipine 10 mg tablet See Rx Instructions .ROUTE .COMPLEX Qty: 90 3RF Dose Instruction: TAKE ONE (1) TABLET BY MOUTH EVERY DAY Rx Instructions: TAKE ONE (1) TABLET BY MOUTH EVERY DAY benzonatate 200 mg capsule 200 mg PO TID PRN (Reason: cough) Qty: 60 0RF cefdinir 300 mg capsule 300 mg PO BID 10 Days Qty: 20 0RF methylprednisolone [Medrol (Venkatesh)] 4 mg tablets,dose pack 4 mg PO DAILY Qty: 21 0RF alprazolam 0.5 mg tablet 0.5 mg PO TID Qty: 90 2RF Rx Instructions: use sparingly pantoprazole 40 mg tablet,delayed release (DR/EC) See Rx Instructions .ROUTE .COMPLEX Qty: 180 3RF Dose Instruction: TAKE 1 TABLET BY MOUTH TWICE DAILY Rx Instructions: TAKE 1 TABLET BY MOUTH TWICE DAILY methylprednisolone [Medrol (Venkatesh)] 4 mg tablets,dose pack See Rx Instructions PO PER PKG DIR Qty: 21 0RF Rx Instructions: PO PER PKG DIR hydrocodone-acetaminophen 10-325 mg tablet 1 tab PO TID PRN (Reason: pain) Qty: 90 0RF furosemide 20 mg tablet See Rx Instructions .ROUTE .COMPLEX Qty: 30 0RF Dose Instruction: TAKE 1 TABLET (20 MG) BY MOUTH EVERY DAY NEEDED FOR EDEMA Rx Instructions: TAKE 1 TABLET (20 MG) BY MOUTH EVERY DAY NEEDED FOR EDEMA ferrous sulfate 325 mg (65 mg iron) tablet 325 mg PO BID Qty: 60 10RF latanoprost 0.005 % drops 1 drp Eye-Both HS Patient Comments: INSTILL ONE (1) DROP INTO BOTH EYES EVERY NIGHT AT BEDTIME Referrals Follow up/Referrals: Abrahan Myers MD [Primary Care Provider, Family Practice] - See instructions Clinical Impressions Clinical Impression: Anemia, Edema Instructions Patient Instructions: Anemia, Edema Print Language Print Language: [place] Citizen Discharge ED Provider: Melchor Oseguera General Adult HPI <Anastasia Davis (ED), SW[employer] EXT[employer]ION FIELD SPECIALIST - Last Filed: 01/30/25 21:56> General Chief complaint: Extremity Problem,Nontraumatic Stated complaint: Sent by PCP to get Ultrasound; Swelling of R Leg Time Seen by Provider: 01/30/25 18:47 Mode of Arrival: Wheelchair Source of Information: Patient Description of Symptoms (Recalled from ER Triage Doc. by RN): Pt presents with bilateral leg edema that started a few weeks ago. Right leg is worse, but pt states this is all new for her. Pt seen Dr Law on Thursday and advised to take her lasix and to report to ER if it did not help. Pt does not have hx of CHF or PAD. Pain is 10/10 with ambulation on her walker and tender to touch. History of Present Illness HPI narrative: 84-year-old female presents to the ED today with complaint of bilateral lower extremity edema that has been going on for few weeks. Right leg is worse. She states that all this is new for her recently. She saw Dr. Myers on Thursday and he advised her to take Lasix and report to the ER if it did not work. She does not have a history of CHF or PAD. She says her right leg is tender to touch. She was told that she needed an ultrasound for her right lower extremity. She was also told that her blood count was low. She has had anemia in the past and has been getting her blood work every other month due to her previous anemia. She has had a left knee replacement. She does not have any shortness of air. Patient has history has chronic back pain, arthritis, GI bleed, kidney disease, hypertension. Patient does take Lasix and metoprolol. Related Data Home Medications ?Medication ?Instructions ?Recorded ?Confirmed latanoprost 0.005 % eye drops 1 drp Eye-Both HS 08/11/23 01/27/25 Previous Rx's ?Medication ?Instructions ?Recorded metoprolol succinate 50 mg See Rx Instructions .Route 03/17/24 tablet,extended release 24 hr .COMPLEX #90 tabs amlodipine 10 mg tablet See Rx Instructions .Route 06/20/24 .COMPLEX #90 tabs benzonatate 200 mg capsule 200 mg PO TID PRN cough #60 caps 10/14/24 cefdinir 300 mg capsule 300 mg PO BID 10 days #20 caps 10/14/24 methylprednisolone 4 mg tablets in 4 mg PO DAILY #21 tabs 11/08/24 a dose pack (Medrol (Venkatesh)) alprazolam 0.5 mg tablet 0.5 mg PO TID Anxiety #90 tabs 11/23/24 pantoprazole 40 mg tablet,delayed See Rx Instructions .Route 11/28/24 release .COMPLEX #180 tabs methylprednisolone 4 mg tablets in See Rx Instructions PO PER PKG DIR 12/15/24 a dose pack (Medrol (Venkatesh)) #21 tabs hydrocodone 10 mg-acetaminophen 1 tab PO TID PRN pain #90 tabs 12/29/24 325 mg tablet promethazine 25 mg tablet 25 mg PO TIDP PRN Nausea #30 tabs 01/27/25 ferrous sulfate 325 mg (65 mg 325 mg PO BID #60 tabs 01/30/25 iron) tablet furosemide 20 mg tablet See Rx Instructions .Route 01/30/25 .COMPLEX #30 tabs Allergies Allergy/AdvReac Type Severity Reaction Status Date / Time nitrofurantoin (From Allergy Severe Rash Verified 01/27/25 09:28 Macrobid) [facility] <Anastasia Davis (ED), [employer]ION FIELD SPECIALIST - Last Filed: 01/30/25 21:56> [facility] Disclaimer: The information contained in this section may have been updated after the patient was seen, as this information can be updated by other users. Medical History Bilateral cataracts Anxiety GERD (gastroesophageal reflux disease) Hypertension Osteoarthritis History of GI bleed Surgical History Hx of cataract removal with insertion of prosthetic lens History of colonoscopy History of esophagogastroduodenoscopy (EGD) Status post left knee replacement Family History Other No significant family history Social History Smoking Status: Never smoker alcohol intake: never substance use type: denies use current occupational status: unemployed Travel in the last 8 weeks?: None housing: house Have you lived/traveled outside US in past 30 days?: No Contact w/someone who lives/traveled outside US past 30 days?: No Exposure to someone with infectious disease in past 14 days?: No Do you have a fever (greater than 100.4 F or 38 C)?: No Have you tested positive for COVID-19?: No Exposed to someone with COVID-19 in past 14 days?: No Do you have a sore throat?: No Do you have a cough?: No Do you have any weakness?: No Do you have any diarrhea?: No Are you experiencing any unusual bleeding?: No Do you have any muscle aches/pain?: No Do you have any abdominal pain?: No Are you experiencing loss of taste or smell?: No Other Medical History Have you received the Flu Vaccine for this season: No Have you received the Pneumonia Vaccine: Yes <Anastasia Davis (ED), [employer] FI[employer] SPECIALIST - Last Filed: 01/30/25 21:56> ROS Obtained: Yes Systems reviewed as appropriate & no additional complaints except as documented Constitutional Constitutional: Reports as per HPI Physical Exam <Anastasia Davis (ED), SW[employer] FIELD SPECIALIST - Last Filed: 01/30/25 21:56> General General appearance: alert and in no apparent distress Head Head exam: atraumatic and normocephalic Eye Eye exam: Present PERRL and EOMI ENT ENT exam: Present normal oropharynx and mucous membranes moist Neck Neck exam: Present full ROM and trachea midline Respiratory Respiratory exam: Present normal lung sounds bilaterally Cardiovascular Cardiovascular exam: Present regular rate, normal rhythm, normal heart sounds, +S1 and +S2 Abdominal Exam Abdominal exam: Present soft and normal bowel sounds Extremities Exam Extremities exam: Present full ROM, tenderness (To right lower extremity), normal capillary refill and edema (Right worse than left) Neurological Exam Neurological exam: Present alert, oriented X3 and normal gait Skin Skin exam: Present warm and intact Medical Decision Making <Anastasia Davis (ED), SW[employer] EXT[employer]ION FIELD SPECIALIST - Last Filed: 01/30/25 21:56> Medical Records Screening: Per USPSTF and CDC recommendations, given the prevalence of disease in our region, it is our hospital?s policy to screen for HIV and viral Hepatitis for all patients aged 18 and over and those with ongoing risk factors. Arsenio Inquiry Pt receiving controlled substance: No Arsenio was queried for this patient: No Vital Signs: 01/30/25 19:12 01/30/25 22:02 Temperature 98.4 F 97.9 F Temperature Source Oral Pulse Rate 77 Pulse Rate [Left] 86 Respiratory Rate 16 18 Blood Pressure 148/87 H Blood Pressure [Right Arm] 151/66 H Blood Pressure Mean [Right Arm] 94 Blood Pressure Source [Right Arm] Automatic Cuff Blood Pressure Position [Right Arm] Sitting 02 Sat by Pulse Oximetry 99 Oxygen Delivery Method Room Air Room Air Lab Data Lab Results 01/30/25 19:30: WBC 8.7, RBC 3.31 L, Hgb 7.1 L, Hct 25.5 L, MCV 77.0 L, MCH 21.5 L, MCHC 27.8 L, RDW 16.1, Plt Count 438 H, MPV 9.7, Neut % (Auto) 65.6, Lymph % (Auto) 19.3, [place] % (Auto) 8.7, Eos % (Auto) 5.4, Baso % (Auto) 0.5, Neut # (Auto) 5.7, Lymph # (Auto) 1.7, [place] # (Auto) 0.8, Eos # (Auto) 0.5 H, Baso # (Auto) 0.0, PT 10.3, INR 0.92, APTT 23.1, D-Dimer 1.25 H, Sodium 136, Potassium 4.1, Chloride 105, Carbon Dioxide 27, Anion Gap 8.1, BUN 26 H, Creatinine 1.20 H, Estimated Creat Clear 33, Estimated GFR 43 L, Est GFR ( Amer) 52 L, Glucose 108 H, Calcium 9.1, Magnesium 1.6, Total Bilirubin 0.1 L, AST 20, ALT 10 L, Alkaline Phosphatase 99, Troponin I < 0.01, NT-Pro-B Natriuret Pep 492 H, Total Protein 6.5, Albumin 3.7, Globulin 2.8, Albumin/Globulin Ratio 1.3, Lipase 32, HCV Ab DELMER w/Rflx PCR Qn Negative, HIV Ag/Ab Combo Qual Negative 01/30/25 20:01: Blood Type O Positive, Antibody Screen Negative 01/30/25 19:30 01/30/25 19:30 Orders (Tests/Meds): ED MEDICATIONS Discontinued Medications Generic Name Dose Route Start Last Admin Trade Name Freq PRN Reason Stop Dose Admin Iopamidol 70 ml 01/30/25 21:12 01/30/25 21:18 Iopamidol-370 (76%);100ml Bottle IV 01/30/25 21:13 70 ml ONCE ONE Administration Sodium Chloride 50 ml 01/30/25 21:12 01/30/25 21:18 0.9 % Sodium Chloride 50 Ml Vial IV 01/30/25 21:13 50 ml ONCE ONE Administration Sodium Chloride 10 ml 01/30/25 21:12 01/30/25 21:18 Sodium Chloride 0.9% 10ml Syr (Rad Only) IV 03/01/25 21:11 10 ml NEEDED PRN Administration Maintain IV Site ORDERS Category Date Time Status Type and Screen Stat BBK 01/30/25 20:01 Completed CTA Chest [CT angio chest PE protocol] Stat Cat Scan 01/30/25 20:59 Completed Chest XR -- portable [XR chest portable] Stat Exams 01/30/25 19:43 Completed POCUS Point of Care (ER Only) Stat Exams 01/30/25 19:43 Completed BNP [NT Pro Brain Natriuretic Pep.] Stat Lab 01/30/25 19:30 Completed CBC [Complete Blood Count Auto Diff] Stat Lab 01/30/25 19:30 Completed Comprehensive Metabolic Panel Stat Lab 01/30/25 19:30 Completed D-Dimer Stat Lab 01/30/25 19:30 Completed HIV Combo Stat Lab 01/30/25 19:30 Completed Hepatitis C Ab Qual. W/ RFX Stat Lab 01/30/25 19:30 Completed Lipase Stat Lab 01/30/25 19:30 Completed Magnesium Stat Lab 01/30/25 19:30 Completed PT INR [Prothrombin Time INR] Stat Lab 01/30/25 19:30 Completed PTT [Activated Partial Thrombo Time] Stat Lab 01/30/25 19:30 Completed Trop I [Troponin I] Stat Lab 01/30/25 19:30 Completed Medical Decision Narrative: patient is a 84-year-old female presenting to the emergency department for evaluation of right lower extremity swelling worse than left side, possible anemia. Patient is hemodynamically stable and nontoxic-appearing upon arrival, afebrile. Differential diagnosis includes CHF, kidney failure, anemia, DVT among other. Workup will be conducted with hematologic labs, specific imaging. Initial workup reviewed by me H&H was 7.1 and 25.5. I talked to Dr. Oseguera and he says the patient can get blood outpatient. Renal function was a little elevated at 26 and 1.2 patient needs to follow-up with PCP about this. I went ahead and did a type and screen so patient can get blood outpatient. POCUS on right leg was negative. However dimer was 1.25 so she got a CTA which was also negative for clot. Patient will follow-up with her PCP this week.. Imaging informally interpreted by me and remarkable for nothing acute. Formal imaging read remarkable for nothing acute. Upon repeat evaluation patient's pain is improved, appears better perfused. Patient daughter and I talked about following up outpatient with PCP for iron infusion and blood transfusion. Dr. Oseguera also talked to the patient and family about this. They are agreeable to discharge home. <Melchor Oseguera MD - Last Filed: 01/30/25 23:22> Vital Signs: 01/30/25 19:12 01/30/25 22:02 Temperature 98.4 F 97.9 F Temperature Source Oral Pulse Rate 77 Pulse Rate [Left] 86 Respiratory Rate 16 18 Blood Pressure 148/87 H Blood Pressure [Right Arm] 151/66 H Blood Pressure Mean [Right Arm] 94 Blood Pressure Source [Right Arm] Automatic Cuff Blood Pressure Position [Right Arm] Sitting 02 Sat by Pulse Oximetry 99 Oxygen Delivery Method Room Air Room Air Lab Data Lab Results 01/30/25 19:30: WBC 8.7, RBC 3.31 L, Hgb 7.1 L, Hct 25.5 L, MCV 77.0 L, MCH 21.5 L, MCHC 27.8 L, RDW 16.1, Plt Count 438 H, MPV 9.7, Neut % (Auto) 65.6, Lymph % (Auto) 19.3, [place] % (Auto) 8.7, Eos % (Auto) 5.4, Baso % (Auto) 0.5, Neut # (Auto) 5.7, Lymph # (Auto) 1.7, [place] # (Auto) 0.8, Eos # (Auto) 0.5 H, Baso # (Auto) 0.0, PT 10.3, INR 0.92, APTT 23.1, D-Dimer 1.25 H, Sodium 136, Potassium 4.1, Chloride 105, Carbon Dioxide 27, Anion Gap 8.1, BUN 26 H, Creatinine 1.20 H, Estimated Creat Clear 33, Estimated GFR 43 L, Est GFR ( Amer) 52 L, Glucose 108 H, Calcium 9.1, Magnesium 1.6, Total Bilirubin 0.1 L, AST 20, ALT 10 L, Alkaline Phosphatase 99, Troponin I < 0.01, NT-Pro-B Natriuret Pep 492 H, Total Protein 6.5, Albumin 3.7, Globulin 2.8, Albumin/Globulin Ratio 1.3, Lipase 32, HCV Ab DELMER w/Rflx PCR Qn Negative, HIV Ag/Ab Combo Qual Negative 01/30/25 20:01: Blood Type O Positive, Antibody Screen Negative Orders (Tests/Meds): ED MEDICATIONS Discontinued Medications Generic Name Dose Route Start Last Admin Trade Name Freq PRN Reason Stop Dose Admin Iopamidol 70 ml 01/30/25 21:12 01/30/25 21:18 Iopamidol-370 (76%);100ml Bottle IV 01/30/25 21:13 70 ml ONCE ONE Administration Sodium Chloride 50 ml 01/30/25 21:12 01/30/25 21:18 0.9 % Sodium Chloride 50 Ml Vial IV 01/30/25 21:13 50 ml ONCE ONE Administration Sodium Chloride 10 ml 01/30/25 21:12 01/30/25 21:18 Sodium Chloride 0.9% 10ml Syr (Rad Only) IV 03/01/25 21:11 10 ml NEEDED PRN Administration Maintain IV Site ORDERS Category Date Time Status Type and Screen Stat BBK 01/30/25 20:01 Completed CTA Chest [CT angio chest PE protocol] Stat Cat Scan 01/30/25 20:59 Completed Chest XR -- portable [XR chest portable] Stat Exams 01/30/25 19:43 Completed POCUS Point of Care (ER Only) Stat Exams 01/30/25 19:43 Completed BNP [NT Pro Brain Natriuretic Pep.] Stat Lab 01/30/25 19:30 Completed CBC [Complete Blood Count Auto Diff] Stat Lab 01/30/25 19:30 Completed Comprehensive Metabolic Panel Stat Lab 01/30/25 19:30 Completed D-Dimer Stat Lab 01/30/25 19:30 Completed HIV Combo Stat Lab 01/30/25 19:30 Completed Hepatitis C Ab Qual. W/ RFX Stat Lab 01/30/25 19:30 Completed Lipase Stat Lab 01/30/25 19:30 Completed Magnesium Stat Lab 01/30/25 19:30 Completed PT INR [Prothrombin Time INR] Stat Lab 01/30/25 19:30 Completed PTT [Activated Partial Thrombo Time] Stat Lab 01/30/25 19:30 Completed Trop I [Troponin I] Stat Lab 01/30/25 19:30 Completed ECG Data Tracing #1: I reviewed this ECG and interpreted as documented below: Normal sinus rhythm at a rate of 80, QTc 417, normal axis, no STEMI Medical Decision Narrative: patient is a 84-year-old female presenting to the emergency department for evaluation of right lower extremity swelling worse than left side, possible anemia. Patient is hemodynamically stable and nontoxic-appearing upon arrival, afebrile. Differential diagnosis includes CHF, kidney failure, anemia, DVT among other. Workup will be conducted with hematologic labs, specific imaging. Initial workup reviewed by me H&H was 7.1 and 25.5. I talked to Dr. Oseguera and he says the patient can get blood outpatient. Renal function was a little elevated at 26 and 1.2 patient needs to follow-up with PCP about this. I went ahead and did a type and screen so patient can get blood outpatient. POCUS on right leg was negative. However dimer was 1.25 so she got a CTA which was also negative for clot. Patient will follow-up with her PCP this week.. Imaging informally interpreted by me and remarkable for nothing acute. Formal imaging read remarkable for nothing acute. Upon repeat evaluation patient's pain is improved, appears better perfused. Patient daughter and I talked about following up outpatient with PCP for iron infusion and blood transfusion. Dr. Oseguera also talked to the patient and family about this. They are agreeable to discharge home. MELVI attestation I was consulted by the MELVI, and we discussed the complexity of problems being addressed. I approved the treatment and management plan for this patient's care in the emergency department, thus performing a substantial portion of the medical decision making. I also personally evaluated the patient at bedside and performed [id number] DVT ultrasound which was negative. Independently interpreted her CT PE revealing of no acute pulmonary embolism. Patient did not have cellulitic changes to her right lower extremity. Was ultimately discharged with plan for PCP follow-up. Melchor Oseguera MD Procedures <Melchor Oseguera MD - Last Filed: 01/30/25 23:22> Miscellaneous Procedure Procedure Performed: DVT US Limited DVT ultrasound Indication: Limited compression ultrasonography of the right lower was performed to evaluate for non-compressibility of the deep veins in the patient. The ultrasound was performed with the following indications, as noted in the H&P: Right leg swelling Identified structures: Right common femoral vein, femoral vein, popliteal vein were examined. Findings: Lower Extremity: Right CFV: Good compressibility Right FV: Good compressibility Right Popliteal vein: Good compressibility Left CFV: Good compressibility Left FV Good compressibility Left Popliteal vein: Good compressibility Impression: Normal Images were saved to permanent archive The study was not technically adequate CPT: 66748-23-WD [id number] 10622-54 (complete bilateral study) This study was performed by me, and I personally interpreted all images/videos. Based on my clinical judgement, these images were adequate and did not necessitate further imaging. Critical Care <Anastasia Davis (LASHANDA), SW[employer] EXT[employer]ION FIELD SPECIALIST - Last Filed: 01/30/25 21:56> Critical Care Time Critical Care Time: No
[2025-01-30 19:57] LABS: Basophils % 0.5 % (0.1-2.0); Eosinophils # 0.5 Kmm3 (0.0-0.4); Eosinophils % 5.4 % (0.1-12.0); Hematocrit 25.5 % (37.0-47.0); Hemoglobin 7.1 g/dL (12.2-16.2); Immature Granulocytes # 0.04 10^3uL; Immature Granulocytes % 0.5 %; Lymphocytes # 1.7 K/mm3 (0.7-4.5); Lymphocytes % 19.3 % (10-50); Mean Corpuscular HGB Conc 27.8 g/dL (31.8-35.4); Mean Corpuscular Hemoglobin 21.5 pg (27.0-31.2); Mean Platelet Volume 9.7 fl (7.4-10.4); Monocytes # 0.8 K/mm3 (0.1-1.0); Monocytes % 8.7 % (1.7-9.3); Neutrophils # 5.7 K/mm3 (1.8-7.8); Neutrophils % 65.6 % (37.0-80.0); Nucleated Red Blood Cells # 0 10^3/uL; Nucleated Red Blood Cells % 0 %; Platelet Count 438 K/mm3 (142-424); Red Blood Count 3.31 M/mm3 (4.20-5.40); Red Cell Distribution Width 16.1 % (11.5-17.5); Red Cell Distribution Width-SD 45.2 fL; White Blood Count 8.7 K/mm3 (4.8-10.8)
[2025-01-30 19:58] LABS: Albumin Level 3.7 g/dl (3.5-5.0); Chloride 105 mmol/L (98-107); Sodium 136 mmol/L (136-145)
[2025-01-30 19:59] LABS: Potassium 4.1 mmoL/L (3.5-5.1)
[2025-01-30 20:01] LABS: Alanine Aminotransferase 10 U/L (12-78); Albumin/Globulin Ratio 1.3 (1.1-1.8); Alkaline Phosphatase 99 U/L (38-126); Anion Gap 8.1 mEq/L (5-15); Aspartate Amino Transferase 20 U/L (14-36); Blood Urea Nitrogen 26 mg/dl (7-17); Calcium 9.1 mg/dl (8.4-10.2); Carbon Dioxide 27 mmol/L (22.0-30.0); Creatinine Clearance Estimated 33 mL/min (50-200); Estimated Glomerular Filt Rate 43 ml/min (>60); GFR (African American) 52 ML/MIN (>60); Globulin 2.8 g/dL (1.3-3.2); Glucose 108 mg/dl (74-100); Lipase 32 U/L (23-300); Total Protein,Serum 6.5 g/dl (6.3-8.2)
[2025-01-30 20:02] LABS: Magnesium 1.6 mg/dl (1.6-2.3)
[2025-01-30 20:05] LABS: Activated Partial Thrombo Time 23.1 seconds (22.8-30.6); INR 0.92 (0.9-1.1); Prothrombin Time 10.3 seconds (10.1-12.5)
[2025-01-30 20:09] LABS: NT Pro Brain Natriuretic Pep. 492 pg/mL (0-450)
[2025-01-30 20:11] LABS: Bilirubin,Total 0.1 mg/dl (0.2-1.3)
--- NOTE | 2025-01-30 20:15 | ECG_ITS ---
APPROVED REPORT Exam: Resting ECG HR:80 bpm ECG Measurements Heart Rate 80 AXES NV 157 P 51 QRSd 77 QRS -6 QT 381 T 29 QTc 417 Conclusion SINUS RHYTHM NORMAL ECG UNCONFIRMED REPORT Electronically signed by : MERCY AARON, 02/02/2025 01:18:42
[2025-01-30 20:28] LABS: Troponin I < 0.01 ng/ml (0.00-0.034)
[2025-01-30 20:41] LABS: D-Dimer 1.25 ug/mL (0.0-0.5)
--- NOTE | 2025-01-30 20:59 | CT_ITS ---
PROCEDURE INFORMATION: Exam: CTA Chest With Contrast Exam date and time: 01/30/2025 9:16 PM Age: 84 years old Clinical indication: Other: D-dimer TECHNIQUE: Imaging protocol: Computed tomographic angiography of the chest with contrast. Exam focused on the arteries. 3D rendering (Not supervised by radiologist): MIP and/or 3D reconstructed images were created by the technologist. Radiation optimization: All CT scans at this facility use at least one of these dose optimization techniques: automated exposure control; mA and/or kV adjustment per patient size (includes targeted exams where dose is matched to clinical indication); or iterative reconstruction. Contrast material: ISOVUE; Contrast volume: 70 ml; Contrast route: INTRAVENOUS (IV); COMPARISON: CR XR CHEST PORTABLE 01/30/2025 8:06 PM FINDINGS: Pulmonary arteries: Normal. No pulmonary emboli. Aorta: Unremarkable. No aortic aneurysm. No aortic dissection. Lungs: Calcified granulomata in the left lung. Pleural spaces: Unremarkable. No pneumothorax. No pleural effusion. Heart: Unremarkable. No cardiomegaly. No pericardial effusion. Lymph nodes: Calcified mediastinal and left hilar lymph nodes. Diaphragm: Large hiatal hernia. Bones/joints: Unremarkable. No acute fracture. Soft tissues: Unremarkable. IMPRESSION: 1. No pulmonary embolus. 2. Large hiatal hernia. 3. Evidence of prior granulomatous exposure.
[2025-01-30 21:04] LABS: HIV Combo NEGATIVE (Negative)
[2025-01-30 21:10] LABS: Hepatitis C Ab Qual. W/ RFX NEGATIVE (Negative)
[2025-01-30] MEDS: IOPAMIDOL-370 (76%);100ML BOTTLE 70 ML IV (21:18)
[2025-01-30] MEDS: SODIUM CHLORIDE 0.9% 10ML SYR (RAD ONLY) 10 ML IV (21:18)
[2025-01-30] MEDS: 0.9 % SODIUM CHLORIDE 50 ML VIAL IV (21:18)
[2025-01-30 22:02] VITALS: BP 148/87; PULSE 77; RESP 18; TEMP 36.6; O2SAT 98
== END 2025-01-30 22:09 | disposition home or self-care (01) ==
PROVIDERS: Nurse Practitioner; Emergency Provider Student in an Organized Health Care Education/Training Program; PCP Family Medicine
DX: R60.0 Localized edema (principal); D64.9 Anemia, unspecified; R79.89 Other specified abnormal findings of blood chemistry; Z11.59 Encounter for screening for other viral diseases; Z11.4 Encounter for screening for human immunodeficiency virus [HIV]
CPT/HCPCS: 71045; 71275; 80053; 80074; 83690; 83735; 83880; 84484; 85025; 85378; 85610; 85730; 86850; 87389; 93005; 99285; Q9967

== ENCOUNTER 2025-03-01 11:30 | Outpatient (CLI) | payer MEDICARE, SELFPAY ==
[2025-03-01 21:06] LABS: Hematocrit 32.3 % (37.0-47.0); Hemoglobin 8.9 g/dL (12.2-16.2); Immature Granulocytes % 0.1 %; Mean Corpuscular HGB Conc 27.6 g/dL (31.8-35.4); Mean Corpuscular Hemoglobin 23.2 pg (27.0-31.2); Mean Corpuscular Volume 84.1 fl (81-99); Nucleated Red Blood Cells % 0 %; Platelet Count 401 K/mm3 (142-424); Red Blood Count 3.84 M/mm3 (4.20-5.40); Red Cell Distribution Width-SD 62.5 fL; White Blood Count 7.2 K/mm3 (4.8-10.8)
[2025-03-01 21:33] LABS: Iron 22 ug/dL (37-170)
[2025-03-01 21:43] LABS: Total Iron Binding Capacity 374 ug/dL (265-497)
--- OUTSIDE RECORDS SUMMARY | 2025-03-02 12:53 | XMS_ITS | Data Portability ---
Author Organization [place] - [facility] Address [address] [place] [address] Assessment No assessment recorded. Plan of Treatment Reminders Order Date Submit Date Provider Last Modified By Organization Details Last Modified Time Details Appointments None recorded. Lab None recorded. Referral None recorded. Procedures None recorded. Surgeries None recorded. Imaging None recorded. Medication Orders Kenalog 10 mg/mL suspension for injection [address], [address], 3 16:20:13 bupivacaine HCl 0.5 % (5 mg/mL) injection solution [address], [address], 3 16:20:13 Kenalog 10 mg/mL suspension for injection [address], [address], 3 11:17:34 bupivacaine (PF) 0.25 % (2.5 mg/mL) injection solution [address], [address], 3 11:17:34 Patient TargetsNo targets recorded. Patient InstructionsNo instructions recorded. Reason for Referral None Reported. Results Created Date Observation Date Name Description Value Unit Range Abnormal Flag Note LastModifiedBy Organization Detail LastModifiedTime 09/27/1909/27/2024 XR, chest , 2 view [facility] [address] [place] [address] Phone: Fax: Name: CONNIE SOTO Exam Date: 09/27/19 : 938 Age 84 years Gender : F Access ion: [id number] Physic rios: Reji Zhou Facili ty: [facility] HSV: Outpat ient Exam: CHEST PA [...] you for referr ing CONNIE SOTO to [facility]. Legall y authen ticate d by ANABEL VELAZQUEZ D 09-27 15:44: 03 CC'ed Logic: Orderi ng Provid er: DAPHNIE AWAN Attend ing Provid er: DAPHNIE AWAN Referr ing Provid er: DAPHNIE AWAN Admitt ing Provid er: DAPHNIE AWAN INTERFACE [facility] (Imaging) [address], [address], 09/27/2024 15:49:43 Result Notes Documentation Provider Name and Address Organization Details Recorded Time Xr, Chest, 2 View : [address] [address] Name: CONNIE SOTO Exam Date: 09/27/2024 : 1940 Age 84 years Gender: F Physician: Reji Shepherd Facility: [facility] HSV: Outpatient Exam: CHEST PA AND LAT History:i??i??SOA x 1 weeki??i??H/O HTN, non-smoker Technique: Chest one view Comparison:i??i??None Interpretation:i??i?? Large hiatal hernia with fluid level.i??i??Low lung volumes without confluent airspace consolidation.i??i??Mild blunting of the costophrenic angles may be due to trace effusions or atelectasis.i??i??Mild cardiomegaly. Impression: Large hiatal hernia. Electronically Signed by: Nelly James MD Dictated By: Nelly James Transcribed By: Transcribed On: 09/27/2024 3:44 PM Electronically signed by: Nelly James 09/27/2024 Thank you for referring CONNIE SOTO to [facility]. Legally authenticated by ANABEL Finley 2024-09-27 15:44:03 CC'ed Logic: Ordering Provider: KARI AWAN Attending Provider: KARI AWAN Referring Provider: KARI AWAN Admitting Provider: KARI AWAN Not Available [facility] 09/27/2024 15:4 9:43 Medical Equipment None Reported. Allergies No known [...] Body temperature Heart rate Respiratory rate Systolic And Diastolic Provider Name and Address Organization Details Last Updated DateTime 02/27/2023 98 [degF] 70 /min 18 /min 130/67 mm[Hg] [facility] [place] [facility] [place] 10:12:17 Social History None recorded. Functional Status None recorded. Mental Status None recorded. Family History Relationship Description Onset Age of this Age Resolved Age Notes LastModified by Organization Details LastModified Time Father No current problems or disability Not available 02/27 10:12:34 Mother No current problems or disability [email or web address] Not available 02/27 10:12:34 Medical History No medical history recorded. Gynecological HistoryNo gynecological history recorded. Obstetrics History GPAL:G 0 P 0 0 0 0 Past Encounters Encounter ID Performer Location Encounter Start Date Encounter Closed Date Diagnosis/Indication Diagnosis SNOMED-CT Code Diagnosis ICD10 Code Diagnosis Note [id number] FRANCIE FERREIRA [facility] [address] [place] [address] 02/27/2023 09:55:12 02/27/2023 11:00:15 Osteoarthritis of right knee joint 0633683653 33964 M17.11 [id number] FRANCIE FERREIRA [address] [address] 07/08/2023 14:44:34 07/08/2023 15:16:06 Osteoarthritis of right knee joint [id number] 94463 M17.11 Health Concerns Section Related Observation LastModified by Organization Detai ls LastModified Time None Recorded Concern Status LastModified by Organization Details LastModified Time None Recorded Advance Directives Directive None Recorded Payers Insurance Date Sequence Insurance Name Policy Number Policy Marti Covered Member ID Marti Member ID Guarantor Name 12/17/2020 1 [facility] L Connie Soto [id number] Connie Soto 12/17/2020 1 [place] Connie Soto [id number] Connie Soto 09/30/2023 1 [place] (MEDICARE REPLACEMENT REGIONAL PPO) [id number] Connie Soto [id number] Connie Soto Notes Date Note Type Note Provider Name and Address Organization Details Recorded Time 02/27/2023 text/html Patient is here today for right knee injection. Last injection was E3 MAR BILLINGS NP [address], [place], [address], [facility] 02/27/2023 11:02:13 07/08/2023 text/html 83 y.o male here for right knee injections. last injection 02.27.23. E1AR MARGARITA BILLINGS, [employer]ATOR [address], [place], [address], [place] - [facility] - [place] [facility] [place] 07/08/2023 16:23:21 OBGyn Episode No OBEpisode recorded.
== END 2025-03-01 23:59 | disposition home or self-care (01) ==
LOC: LAB.DROPOF 03-02 12:52
PROVIDERS: PCP Family Medicine; Visit Provider Family Medicine
DX: R60.9 Edema, unspecified (principal); D64.9 Anemia, unspecified
CPT/HCPCS: 83540; 83550; 85025

== ENCOUNTER 2025-03-29 10:25 | Outpatient (CLI) | payer MEDICARE, SELFPAY ==
[2025-03-29 17:51] LABS: Hematocrit 32.0 % (37.0-47.0); Hemoglobin 8.9 g/dL (12.2-16.2); Immature Granulocytes % 0.4 %; Mean Corpuscular HGB Conc 27.8 g/dL (31.8-35.4); Mean Corpuscular Hemoglobin 22.6 pg (27.0-31.2); Mean Corpuscular Volume 81.4 fl (81-99); Nucleated Red Blood Cells % 0 %; Platelet Count 410 K/mm3 (142-424); Red Blood Count 3.93 M/mm3 (4.20-5.40); Red Cell Distribution Width-SD 54.0 fL; White Blood Count 7.8 K/mm3 (4.8-10.8)
== END 2025-03-29 23:59 | disposition home or self-care (01) ==
LOC: LAB.DROPOF 03-30 12:07
PROVIDERS: PCP Family Medicine; Visit Provider Family Medicine
DX: I12.9 Hypertensive chronic kidney disease with stage 1 through stage 4 chronic kidney disease, or unspecified chronic kidney disease (principal); D64.9 Anemia, unspecified; R60.9 Edema, unspecified; N18.9 Chronic kidney disease, unspecified
CPT/HCPCS: 85025

== ENCOUNTER 2025-06-12 11:00 | Outpatient (CLI) | payer MEDICARE, SELFPAY ==
[2025-06-12 16:40] LABS: Hematocrit 33.1 % (37.0-47.0); Hemoglobin 10.1 g/dL (12.2-16.2); Immature Granulocytes % 0.3 %; Mean Corpuscular HGB Conc 30.5 g/dL (31.8-35.4); Mean Corpuscular Hemoglobin 25.6 pg (27.0-31.2); Mean Corpuscular Volume 84.0 fl (81-99); Nucleated Red Blood Cells % 0 %; Platelet Count 355 K/mm3 (142-424); Red Blood Count 3.94 M/mm3 (4.20-5.40); Red Cell Distribution Width-SD 50.8 fL; White Blood Count 6.9 K/mm3 (4.8-10.8)
[2025-06-12 17:12] LABS: Iron 185 ug/dL (37-170)
[2025-06-12 17:22] LABS: Total Iron Binding Capacity 342 ug/dL (265-497)
== END 2025-06-12 23:59 ==
LOC: LAB.DROPOF 06-14 11:01
PROVIDERS: PCP Family Medicine; Visit Provider Family Medicine
DX: D64.9 Anemia, unspecified (principal); I10 Essential (primary) hypertension; M54.50 Low back pain, unspecified; G89.29 Other chronic pain
CPT/HCPCS: 83540; 83550; 85025